=== PATIENT | male | born 1930 | race Caucasian/White ===

== ENCOUNTER 2017-05-29 13:45 | Emergency (ER) | payer MEDICARE ==
[~2017-05-29] VITALS: Ht 185.4 cm; Wt 83.5 kg
--- NOTE | 2017-05-29 13:45 | NUR ---
[facility] DT HEADCACHE, NECK PAIN AND ABDOMINAL PAIN ENDODONTIC ASSISTANT. PATIENT DENIES PAIN AT THIS TIME. REMAINS AWAKE AND ALERT HOWERVER CONFUSED. DENEIS N/V/D. NO HEMATURIA, NOR DYSURIA. VSS.
[2017-05-29 15:06] LABS: BASOPHILS % (AUTO) 0.5 % (0.0-2.0); EOSINOPHILS # (AUTO) 0.1 /CMM (0.0-0.7); HEMATOCRIT 39 % (39-51); HEMOGLOBIN 13.5 g/dL (13.5-17.5); LYMPHOCYTES % (AUTO) 14.8 % (20.0-44.0); MEAN CORPUSCULAR HEMOGLOBIN 32 PG (26.0-33.0); MEAN CORPUSCULAR HGB CONC 35 g/dl (31.0-36.0); MEAN CORPUSCULAR VOLUME 93 fL (80-96); MONOCYTES # (AUTO) 0.5 /CMM (0.1-1.30); MONOCYTES % (AUTO) 7.1 % (2.0-12.0); NEUTROPHILS # (AUTO) 5.3 /CMM (1.8-8.9); NEUTROPHILS % (AUTO) 76.6 % (43.0-81.0); PLATELET COUNT (AUTO) 114 /CMM (150-450); RED BLOOD CELL COUNT(AUTO) 4.23 MIL/uL (4.5-6.0); WHITE BLOOD COUNT (AUTO) 6.9 K/uL (4.3-11.0)
[2017-05-29 15:17] LABS: CALCIUM, SERUM 8.5 mg/dL (8.5-10.1); CARBON DIOXIDE 28 mmol/L (21-32); CHLORIDE 108 mmol/L (98-107); CREATININE 1.6 mg/dL (0.6-1.3); GLUCOSE 92 mg/dL (74-106); POTASSIUM 4.5 mmol/L (3.5-5.1); SODIUM SERUM 142 mmol/L (136-145); UREA NITROGEN, BLOOD 23 mg/dL (7-18)
[2017-05-29 15:21] LABS: INR 0.98 (0.87-1.13); PROTHROMBIN TIME 10.2 SECS (9.5-12.7)
[2017-05-29 15:26] LABS: TROPONIN I < 0.017 ng/mL (0.00-0.056)
[2017-05-29] MEDS ORDERED: IV NS 0.9% 500 ML BAG IV ONE (16:30)
[2017-05-29 16:39] VITALS: BP 120/82
--- NOTE | 2017-05-29 16:39 | NUR ---
IV removed. Catheter intact and site benign. Pressure and 4x4 applied to site. No bleeding noted.Patient discharged to home in stable condition. Written and verbal after care instructions given. Patient verbalizes understanding of instruction.
== END 2017-05-29 16:40 | disposition home or self-care (01) ==
LOC: ER 13:46
DX: F03.90 Unspecified dementia, unspecified severity, without behavioral disturbance, psychotic disturbance, mood disturbance, and anxiety (principal); D69.6 Thrombocytopenia, unspecified; N28.9 Disorder of kidney and ureter, unspecified; I10 Essential (primary) hypertension; E78.00 Pure hypercholesterolemia, unspecified; E78.5 Hyperlipidemia, unspecified
CPT/HCPCS: 36415; 70450; 71010; 80048; 84484; 85025; 85730; 93005; 99285; A4606; Z7610

== ENCOUNTER 2017-07-18 14:59 | Inpatient (IN) | payer MEDICARE, MEDICAID ==
[~2017-07-18] VITALS: Ht 172.7 cm; Wt 74.8 kg
--- NOTE | 2017-07-18 15:19 | NUR ---
[id number] FROM HOME: LEFT HIP PAIN, 03/01, ACHING.- SP EXTERNAL ROTATION S/P GLF YESTERDAY. PATIENT'S VSS.
[2017-07-18] MEDS ORDERED: MORPHINE SULFATE INJ 2 MG/ML DISP.SYRIN IV ONE (15:30)
[2017-07-18] MEDS ORDERED: IV NS 0.9% 500 ML BAG IV ONE (15:30)
--- NOTE | 2017-07-18 15:30 | NUR ---
Justa SIDHU G 18 IV STARTED. BLODO TESTS DRAWN AND SEND TO LAB.
[2017-07-18] MEDS ORDERED: MORPHINE SULFATE INJ 2 MG/ML DISP.SYRIN ONE (15:32)
[2017-07-18 15:42] LABS: BASOPHILS # (AUTO) 0.7 /CMM (0.0-0.2); BASOPHILS % (AUTO) 4.6 % (0.0-2.0); EOSINOPHILS # (AUTO) 0.1 /CMM (0.0-0.7); EOSINOPHILS % (AUTO) 0.4 % (0.0-6.0); HEMATOCRIT 34 % (39-51); HEMOGLOBIN 11.6 g/dL (13.5-17.5); LYMPHOCYTES # (AUTO) 2.1 /CMM (0.8-4.8); LYMPHOCYTES % (AUTO) 14.7 % (20.0-44.0); MEAN CORPUSCULAR HEMOGLOBIN 31 PG (26.0-33.0); MEAN CORPUSCULAR HGB CONC 35 g/dl (31.0-36.0); MEAN CORPUSCULAR VOLUME 90 fL (80-96); MONOCYTES # (AUTO) 1.8 /CMM (0.1-1.30); MONOCYTES % (AUTO) 12.5 % (2.0-12.0); NEUTROPHILS # (AUTO) 9.5 /CMM (1.8-8.9); NEUTROPHILS % (AUTO) 67.8 % (43.0-81.0); PLATELET COUNT (AUTO) 201 /CMM (150-450); RDW COEFFICIENT OF VARIATION 12.6 (11.5-15.0); RED BLOOD CELL COUNT(AUTO) 3.73 MIL/uL (4.5-6.0); WHITE BLOOD COUNT (AUTO) 14.2 K/uL (4.3-11.0)
[2017-07-18 15:51] LABS: CALCIUM, SERUM 9.1 mg/dL (8.5-10.1); CARBON DIOXIDE 24 mmol/L (21-32); CHLORIDE 104 mmol/L (98-107); CREATININE 2.4 mg/dL (0.6-1.3); GLUCOSE 114 mg/dL (74-106); POTASSIUM 4.4 mmol/L (3.5-5.1); SODIUM SERUM 140 mmol/L (136-145); UREA NITROGEN, BLOOD 44 mg/dL (7-18)
[2017-07-18 15:55] LABS: INR 1.01 (0.87-1.13); PROTHROMBIN TIME 10.5 SECS (9.5-12.7)
[2017-07-18 15:58] LABS: ALANINE AMINOTRANSFERASE 32 U/L (12-78); ALBUMIN 3.4 g/dL (3.4-5.0); ALKALINE PHOSPHATASE 89 U/L (46-116); ASPARTATE AMINOTRANSFERASE 62 U/L (15-37); BILIRUBIN,DIRECT 0.5 mg/dL (0.0-0.2); BILIRUBIN,TOTAL 1.5 mg/dL (0.2-1.0); TOTAL PROTEIN, SERUM 6.8 g/dL (6.4-8.2)
[2017-07-18 16:07] LABS: TROPONIN I < 0.017 ng/mL (0.00-0.056)
[2017-07-18] MEDS ORDERED: IV NS 0.9% 500 ML IV ONE (16:30)
--- NOTE | 2017-07-18 18:39 | NUR ---
REPORT GIVEN TO JIMMY WILL FOR NEYDA
[2017-07-18 19:01] VITALS: BP 127/89
--- NOTE | 2017-07-18 19:01 | NUR ---
MS RN ADMITTING NOTES: ADMITTED AN 86 YO MALE PATIENT WHO WAS SEEN IN THE ER AFTER HAVING AN UNWITNESSED FALL AT HOME, RESULTING IN LEFT HIP PAIN. IN ER, HE WAS FOUND TO HAVE LEFT INTERTROCHANTERIC FRACTURE. PATIENT WAS BROUGHT TO MS FLOOR VIA KELSI, AOX1, ON ROOM AIR, BREATHING EVEN AND UNLABORED, BREATH SOUNDS CLEAR TO AUSCULTATION. PATIENT APPEARS CALM AND PLEASANT, HOWEVER, STATES THAT HE HAS SHARP PAIN OVER LEFT HIP AND LEFT UPPER LEG WHEN TURNED OR MOVED IN BED. NOTED BLE WITH DISCOLORATION AND EXCORIATIONS. PROVIDED FOR COMFORT AND SAFETY. BED IN LOWEST AND LOCKED POSITION, SIDERAILS UP X 3, BED ALARMS PSYCHOLOGIST EXPERIMENTAL LIGHT WITHIN REACH. WILL CONT TO MONITOR.
[2017-07-18] MEDS ORDERED: CHOL50004 PO (19:08)
[2017-07-18] MEDS ORDERED: MEMA10TA PO (19:08)
[2017-07-18] MEDS ORDERED: MELO-107 PO (19:08)
[2017-07-18] MEDS ORDERED: SIMV20TA6 PO (19:08)
[2017-07-18] MEDS ORDERED: CELE200C PO (19:08)
[2017-07-18] MEDS ORDERED: OLME20TA21 PO (19:08)
[2017-07-18 20:00] VITALS: BP 125/85
[2017-07-18] MEDS ORDERED: ONDANSETRON HCL/PF 4 MG/2 ML VIAL IVP PRN (20:30)
[2017-07-18] MEDS ORDERED: ACETAMINOPHEN 325 MG TABLET PO PRN (20:30)
[2017-07-18] MEDS ORDERED: Z GUARD REMEDY 2 OZ OINT TP PRN (20:30)
[2017-07-18] MEDS ORDERED: ENOXAPARIN SODIUM 40 MG/0.4 ML DISP.SYRIN SQ SCH (21:00)
--- NOTE | 2017-07-18 22:00 | NUR ---
RN NOTES: SPOKE TO DAUGHTER CEDRICK , WHO IS ALSO THE CONSERVATOR, THAT SHE WILL BRING THE CONSERVATORSHIP PAPERS TOMORROW AND THAT PATIENT IS TO BE FULL CODE. ALSO INFORMED THAT PT HAS A RESTRAINING ORDER AGAINST ANOTHER DAUGHTER, LEÓN ZENDEJAS.
[2017-07-18] MEDS: IV NS 0.9% 1,000 ML IV PRN (22:47)
[2017-07-18] MEDS: SIMVASTATIN 20 MG TABLET PO SCH (22:47)
--- NOTE | 2017-07-18 23:32 | NUR ---
RN NOTES: SPOKE TO ERICA HALL: HOLD LOVENOX AT THIS TIME, PATIENT MIGHT HAVE SURGERY TOMORROW. NOTED AND CARRIED OUT.
--- NOTE | 2017-07-19 04:30 | NUR ---
RN NOTES: PATIENT PULLED OUT HIS IV. REINSERTED NEW IV LINE OVER RAC G 20, WITH GOOD BLOOD RETURN. WILL CONT TO MONITOR.
--- NOTE | 2017-07-19 05:30 | NUR ---
RN NOTES: OBTAINED ORDER FOR WILLIAMSON CATHETER PATIENT HAS PAIN WHILE TURNING. WILLIAMSON CATHETER FR 16 INSERTED, URINE SPECIMEN OBTAINED. WILL CONT TO MONITOR.
--- NOTE | 2017-07-19 06:53 | NUR ---
MS RN CLOSING NOTES: PATIENT IN BED, AOX1/ PLEASANTLY CONFUSED. ON ROOM AIR, BREATHING EVEN AND UNLABORED. APPEARS CALM AND IN NO DISTRESS. PIV OVER RAC G 20 INTACT AND PATENT, INFUSING WELL WITH NS RUNNING AT 75 ML/HR. DUE MEDS GIVEN. MAINTAINED ON NPO AFTER MN. PROVIDED FOR COMFORT AND SAFETY. BED IN LOWEST AND LOCKED POSITION, SIDERAILS UP X 3. WILL ENDORSE TO AM RN FOR NEYDA.
--- NOTE | 2017-07-19 07:30 | NUR ---
MS/RN OPENING NOTE PATIENT RECEIVED IN BED AWAKE. ALERT AND ORIENTED X1. REORIENTATION PROVIDED. DENIES SOB, DENIES PAIN. IN NO APPARENT DISTRESS. RAC G20 PATENT AND IV INFUSING WELL. PATIENT NPO UNTIL NEW ORDER. BED LOW AND LOCKED. SIDE RAIL X2 UP. CALL LIGHT WITHIN REACH. SITTER BY THE BED. WILL CONTINUE TO MONITOR.
[2017-07-19 07:37] LABS: APPEARANCE,URINE CLEAR (CLEAR); BILIRUBIN,URINE NEGATIVE (NEGATIVE); BLOOD, URINE 3+ Ery/uL (NEGATIVE); COLOR,URINE YELLOW (YELLOW); KETONES,URINE TRACE (NEGATIVE); LEUKOCYTE ESTERASE ,URINE NEGATIVE (NEGATIVE); NITRITE, URINE NEGATIVE (NEGATIVE); PH,URINE 5.5 (5.0-8.0); PROTEIN,URINE TRACE mg/dl (NEGATIVE); UGLUCOSE NEGATIVE (NEGATIVE)
[2017-07-19 07:53] LABS: BACTERIA,URINE Few /HPF (None Seen); SQUAMOUS EPITHELIAL CELL,UR Few /HPF (None Seen)
[2017-07-19 08:47] LABS: BASOPHILS % (AUTO) 0.2 % (0.0-2.0); EOSINOPHILS # (AUTO) 0.2 /CMM (0.0-0.7); EOSINOPHILS % (AUTO) 1.5 % (0.0-6.0); HEMATOCRIT 32 % (39-51); HEMOGLOBIN 10.8 g/dL (13.5-17.5); LYMPHOCYTES # (AUTO) 1.4 /CMM (0.8-4.8); LYMPHOCYTES % (AUTO) 11.6 % (20.0-44.0); MEAN CORPUSCULAR HEMOGLOBIN 32 PG (26.0-33.0); MEAN CORPUSCULAR HGB CONC 34 g/dl (31.0-36.0); MEAN CORPUSCULAR VOLUME 94 fL (80-96); MONOCYTES % (AUTO) 8.3 % (2.0-12.0); NEUTROPHILS # (AUTO) 9.5 /CMM (1.8-8.9); NEUTROPHILS % (AUTO) 78.4 % (43.0-81.0); PLATELET COUNT (AUTO) 148 /CMM (150-450); RDW COEFFICIENT OF VARIATION 13.7 (11.5-15.0); WHITE BLOOD COUNT (AUTO) 12.2 K/uL (4.3-11.0)
[2017-07-19 08:56] LABS: ALANINE AMINOTRANSFERASE 40 U/L (12-78); ALKALINE PHOSPHATASE 86 U/L (46-116); ASPARTATE AMINOTRANSFERASE 100 U/L (15-37); CALCIUM, SERUM 8.8 mg/dL (8.5-10.1); CARBON DIOXIDE 25 mmol/L (21-32); CHLORIDE 108 mmol/L (98-107); CREATININE 1.8 mg/dL (0.6-1.3); GLUCOSE 105 mg/dL (74-106); MAGNESIUM 2.1 mg/dL (1.8-2.4); PHOSPHORUS 3.3 mg/dL (2.5-4.9); POTASSIUM 4.2 mmol/L (3.5-5.1); SODIUM SERUM 142 mmol/L (136-145); TOTAL PROTEIN, SERUM 6.6 g/dL (6.4-8.2); UREA NITROGEN, BLOOD 39 mg/dL (7-18)
[2017-07-19] MEDS ORDERED: LOSARTAN POTASSIUM 25 MG TABLET PO SCH (09:00)
[2017-07-19] MEDS ORDERED: MELOXICAM 7.5 MG TABLET PO SCH (09:00)
[2017-07-19] MEDS: MEMANTINE HCL 5 MG TABLET PO SCH ×2 (09:00→17:00)
[2017-07-19] MEDS: CHOLECALCIFEROL 1,000 UNIT TABLET (VIT D3) PO SCH (09:00)
[2017-07-19 09:01] VITALS: BP 106/69
[2017-07-19 09:22] LABS: CHOLESTEROL 102 mg/dL (<200); HDL CHOLESTEROL 58 mg/dL (40-60); LDL 38 mg/dL (0-99); TRIGLYCERIDES 67 mg/dL (30-150)
--- NOTE | 2017-07-19 10:51 | NUR ---
MS/RN MD VISIT PATIENT SEEN BY DR SOFIA. PETE TO MD ATTENTION LEFT FOOT COLD TO TOUCH AND PALE. MD ASSESSED AND PER PEDAL PULSE PRESENT AND " NOTHING TO WORRY ABOUT." PER MD CONTINUE NPO DUE TO SURGERY.
[2017-07-19 13:06] LABS: CREATININE, URINE 196.4 MG/DL (30.0-125.0)
[2017-07-19 16:00] VITALS: BP 119/73
--- NOTE | 2017-07-19 17:11 | NUR ---
MS/RN NOTE PATIENT MEDICATION HELD DUE TO NPO FOR SURGERY.
[2017-07-19] MEDS ORDERED: FENTANYL PF 100MCG/2ML AMPUL ONE (17:50)
--- NOTE | 2017-07-19 17:50 | NUR ---
MS/RN LEFT FOR SURGERY PATIENT ALERT AND VERBALLY RESPONSIVE/ ALERT AND ORIENTED X1. RESPIRATION REGULAR AND UNLABORED. DENIES SOB. DENIES PAIN. IN NO APPARENT DISTRESS. IN STABLE CONDITION. TAKEN TO THE OR. RP ACCOMPANIED.
[2017-07-19] MEDS ORDERED: BUPIVACAINE 0.5 % PF 150 MG/30 ML VIAL ONE (18:27)
[2017-07-19] MEDS ORDERED: BACITRACIN 50000 UNITS/VIAL ONE (18:27)
--- NOTE | 2017-07-19 19:30 | NUR ---
MS RN NOTES: PT NOT IN ROOM. PT IN OR.
--- NOTE | 2017-07-19 20:18 | NUR ---
MS RN NOTES: PT BACK FROM OR. WILL CONTINUE TO MONITOR PT.
--- NOTE | 2017-07-19 20:20 | NUR ---
MS RN OPENING NOTES: RECEIVED PT FROM OR IN STABLE CONDITION. 2 FAMILY MEMBERS AT BEDSIDE. SITTER AT BEDSIDE. PT IS A/OX1 WITH PERIODS OF CONFUSION. PT HAS IV ON R AC #20G AND WILL BE STARTED ON NS AT 75ML/HR. GOT OR ORDERS AND TO PRESUME PREOP ORDERS. WILL START PT ON CLEAR LIQUIDS DIET AND ADVANCE TOLERATED. LOVENOX TO BE ADMINISTERED AFTER 24HOURS FOR HGB >9. DRESSING NOTED ON L HIP TO BE CLEAN AND DRY. PT BACK FROM L HIP IM RODDING D/T L HIP FRACTURE AND WAS PERFORMED BY DR. BALLARD. CALL LIGHT WITHIN PT'S REACH. BED KEPT IN LOW, LOCKED POSITION, AND SIDE RAILS X 2UP. WILL CONTINUE TO MONITOR PT.
[2017-07-19 20:21] VITALS: BP 100/59
[2017-07-19 20:30] VITALS: BP 100/59
[2017-07-19] MEDS: IV NS 0.9% 1,000 ML IV PRN (20:47)
--- NOTE | 2017-07-19 20:47 | NUR ---
MS RN NOTES: HAD TO MANUALLY ADMINISTER NX AT 75ML/HR. [facility] MISSING. ADMITTING NOTIFIED AND THEY SAID THEY ARE BUSY AT THIS TIME. WILL TRY ADMITTING AGAIN AT ANOTHER TIME. PT COMING BACK FROM OR SO WOULD LIKE TO START PT ON FLUIDS.
[2017-07-19] MEDS: SIMVASTATIN 20 MG TABLET PO SCH (21:54)
--- NOTE | 2017-07-19 21:54 | NUR ---
MS RN NOTES: HAD TO MANUALLY ADMINISTER SIMVASTATIN 20MG PO SINCE ARM BAND IS STILL NOT READY. MOVER HELPER CALLED ADMITTING ALREADY.
[2017-07-19 22:00] VITALS: BP 111/62
[2017-07-20] MEDS: ANCEF 1 GM/50 ML D5W IV SCH ×6 (01:01→17:27)
[2017-07-20 04:42] VITALS: BP 111/71
[2017-07-20] MEDS: MORPHINE SULFATE INJ 2 MG/ML DISP.SYRIN IV PRN (04:45)
--- NOTE | 2017-07-20 04:47 | NUR ---
MS RN NOTES: PT SEEMS RESTLESS AND WILL NOT GO TO SLEEP. PT KEEPS PULLING IV LINES AND IT MAY FALL ON HIM. INFORMED PT THAT HE NEEDS TO STAY HYDRATED. PT COMPLAINING THAT HE HAS L ARM AND HIP PAIN. PT WAS ADMINISTERED MORPHINE VIA IV. WILL CONTINUE TO MONITOR PT.
[2017-07-20 06:05] VITALS: BP 111/71
--- NOTE | 2017-07-20 07:30 | NUR ---
MS RN CLOSING NOTES: ALL NEEDS WERE ATTENDED AND ANTICIPATED FOR. PT IS ASLEEP AT THIS TIME. PT HAS BEEN A/OX1 WITH CONFUSION THROUGHOUT MY SHIFT. PT HAS WILLIAMSON CATH AND IS ATTACHED TO DRAINAGE BAG WITH YELLOW URINE DRAINING. OUTPUT WAS 550ML. PT HAS IV ON R AC #20G AND IS BEING INFUSED WITH NS AT 75ML/HR. SITTER AT BEDSIDE. CALLED [facility] AND SAID THEY WERE LOW BUT WILL BRING SOME UP SOON THEY ARE AVAILABLE. PT ON CLEAR LIQUIDS DIET AND TOLERATED WELL LAST NIGHT. DRESSING ON L HIP INTACT AND CLEAN. CALL LIGHT WITHIN PT'S REACH. BED KEPT IN LOW, LOCKED POSITION, AND SIDE RAILS X 2UP. ENDORSED TO AM NURSE FOR NEYDA.
[2017-07-20 08:00] VITALS: BP_SYST 106; BP_SYST 141; BP_DIAS 70; BP_DIAS 72
[2017-07-20 08:00] LABS: BASOPHILS % (AUTO) 0.1 % (0.0-2.0); EOSINOPHILS # (AUTO) 0.1 /CMM (0.0-0.7); EOSINOPHILS % (AUTO) 1.2 % (0.0-6.0); HEMATOCRIT 25 % (39-51); HEMOGLOBIN 8.8 g/dL (13.5-17.5); LYMPHOCYTES % (AUTO) 9.7 % (20.0-44.0); MEAN CORPUSCULAR HEMOGLOBIN 32 PG (26.0-33.0); MEAN CORPUSCULAR HGB CONC 35 g/dl (31.0-36.0); MEAN CORPUSCULAR VOLUME 91 fL (80-96); MONOCYTES # (AUTO) 0.5 /CMM (0.1-1.30); MONOCYTES % (AUTO) 5.2 % (2.0-12.0); NEUTROPHILS # (AUTO) 8.6 /CMM (1.8-8.9); NEUTROPHILS % (AUTO) 83.8 % (43.0-81.0); PLATELET COUNT (AUTO) 125 /CMM (150-450); RDW COEFFICIENT OF VARIATION 13.1 (11.5-15.0); RED BLOOD CELL COUNT(AUTO) 2.75 MIL/uL (4.5-6.0); WHITE BLOOD COUNT (AUTO) 10.2 K/uL (4.3-11.0)
--- NOTE | 2017-07-20 08:17 | NUR ---
m/s ear nose throat physician: cardio f/u seen and examined by dr. gamboa with new orders. orders acknowledged.
[2017-07-20 08:21] LABS: APPEARANCE,URINE SL CLOUDY (CLEAR); BILIRUBIN,URINE NEGATIVE (NEGATIVE); BLOOD, URINE 2+ Ery/uL (NEGATIVE); COLOR,URINE DARK YELLO (YELLOW); KETONES,URINE 1+ (NEGATIVE); LEUKOCYTE ESTERASE ,URINE NEGATIVE (NEGATIVE); NITRITE, URINE NEGATIVE (NEGATIVE); PROTEIN,URINE NEGATIVE (NEGATIVE); UGLUCOSE NEGATIVE (NEGATIVE); UROBILINOGEN,URINE 0.2 EU/dL (0.2)
[2017-07-20 08:30] LABS: ALANINE AMINOTRANSFERASE 39 U/L (12-78); ALBUMIN 2.4 g/dL (3.4-5.0); ALKALINE PHOSPHATASE 71 U/L (46-116); ASPARTATE AMINOTRANSFERASE 77 U/L (15-37); BILIRUBIN,TOTAL 0.8 mg/dL (0.2-1.0); CALCIUM, SERUM 8.6 mg/dL (8.5-10.1); CARBON DIOXIDE 28 mmol/L (21-32); CHLORIDE 114 mmol/L (98-107); CREATININE 1.6 mg/dL (0.6-1.3); GLUCOSE 181 mg/dL (74-106); PHOSPHORUS 3.3 mg/dL (2.5-4.9); SODIUM SERUM 148 mmol/L (136-145); TOTAL PROTEIN, SERUM 5.7 g/dL (6.4-8.2); UREA NITROGEN, BLOOD 35 mg/dL (7-18)
[2017-07-20 08:46] LABS: CREATINE KINASE, TOTAL 670 U/L (39-308)
[2017-07-20 08:56] LABS: CREATININE, URINE 128.2 MG/DL (30.0-125.0); URINE TOTAL PROTEIN 57.9 mg/dL (0-11.9)
[2017-07-20] MEDS: MEMANTINE HCL 5 MG TABLET PO SCH ×2 (09:00→17:00)
[2017-07-20] MEDS: CHOLECALCIFEROL 1,000 UNIT TABLET (VIT D3) PO SCH (09:00)
[2017-07-20 09:38] LABS: CREATINE KINASE MB 7.6 ng/mL (0-3.6)
--- NOTE | 2017-07-20 09:49 | NUR ---
WOUND CARE CONSULT: PT PRESENTS WITH AGITATION AT TIMES. STAGE 1 (NONBLANCHABLE REDNESS) NOTED TO LEFT LATERAL ANKLE, PRESENT ON ADMISSION. CURRENT VOLODYMYR SCORE IS 11. PT ON CHANTEL ISOFLEX LOW AIRLOSS BED. ALL SKIN PROTECTION MEASURES IN PLACE AND DISCUSSED WITH NURSING STAFF. LEFT HIP SURGICAL DSGS ARE DRY AND INTACT. WILL SEE PRN. IBARRA IN AGREEMENT WITH PLAN OF CARE. Addendum: 07/20/17 at 8954 by MATT REDDY WNDNU Amended: Links added.
--- NOTE | 2017-07-20 12:00 | NUR ---
m/s associate account executive: notes resting comfortable in bed with sitter at bedside. will continue to monitor.
--- NOTE | 2017-07-20 13:45 | NUR ---
m/s automatic profile shaper operator: md visit seen and examined by dr. quiroga at this time. private caregiver at bedside.
[2017-07-20 14:27] LABS: BACTERIA,URINE None seen /HPF (None Seen); SQUAMOUS EPITHELIAL CELL,UR None Seen /HPF (None Seen); URIC ACID CRYSTALS,URINE Moderate /HPF (None Seen); WBC,URINE NONE SEEN /HPF (0-3)
[2017-07-20] MEDS: SOD FERRIC GLUC 125 MG in IV NS 0.9% 100 ML IV SCH (15:31)
[2017-07-20 16:00] VITALS: BP 108/58
[2017-07-20 17:03] LABS: EOSINOPHIL,URINE None Seen
--- NOTE | 2017-07-20 18:45 | NUR ---
m/s registered public health nurse: notes daughter here and aware pt is for d'c planning to snf, but request if he can stay until sunday. attempted to call case management, but no answer, daughter made aware. will endorsed accordingly.
--- NOTE | 2017-07-20 19:00 | NUR ---
RN NOTES A/O X 1, IN BED RESTING COMFORTABLY PT IN STABLE CONDITION, NO S/S OF DISTRESS. SAFETY MEASURES ARE IN PLACE, CALL LIGHT IS IN REACH. WILL CONTINUE TO MONITOR.
[2017-07-20 20:00] VITALS: BP 101/57
[2017-07-20] MEDS: ENOXAPARIN SODIUM 40 MG/0.4 ML DISP.SYRIN SQ SCH (21:15)
[2017-07-20] MEDS: IV NS 0.9% 1,000 ML IV PRN (21:16)
--- NOTE | 2017-07-21 06:30 | NUR ---
MS RN CLOSING NOTES COMFORTABLY ASLEEP IN BED AND EASILY AWAKEN, TOLERATING ROOM AIR 98% RESPIRATIONS EVEN AND UNLABORED. NOT IN S/S DISTRESS. STABLE CONDITION. KEPT CLEAN AND DRY AND COMFORTABLE, GOOD SKIN CARE PROVIDED. ALL NURSING CARE RENDERED. NEEDS ATTENDED AND ANTICIPATED, FREQUENT VISUAL CHECK DONE FOR SAFETY EVERY 2 HOURS. ASSISTED REPOSITION Q2H. ON LOW BED AT ALL TIMES TO ENSURE SAFETY. SAFE HAZARD FREE ENVIRONMENT PROVIDED. CALL LIGHT WITHIN EASY TO REACH. WILL ENDORSE NEXT SHIFT CONTINUITY OF CARE.
--- NOTE | 2017-07-21 07:10 | NUR ---
MS RN OPENING NOTE RECEIVED SBAR REPORT ON THE PATIENT. PATIENT IS A/O X1, CONFUSED, FORGETFUL. ASLEEP, EASILY AWAKEN INBED. BED IS LOCKED IN LOWEST POSITION. SIDE RAILS UP X3, BED ALARM IS ON. PATIENT HAS A WILLIAMSON CATHETER DRAINING CLEAR YELLOW URINE. DENIES PAIN/DISCOMFORT AT THIS TIME. NO S/S OF DISTRESS. CHEST IS RISING EQUALLY BILATERALLY. SPO2 97% ON RA. ALL NEEDS ARE MET AT THIS TIME. WILL CONTINUE TO ASSESS/MONITOR THROUGHOUT THE SHIFT.
[2017-07-21 08:00] VITALS: BP 110/64
[2017-07-21 08:17] LABS: BASOPHILS # (AUTO) 0.1 /CMM (0.0-0.2); BASOPHILS % (AUTO) 0.5 % (0.0-2.0); EOSINOPHILS # (AUTO) 0.7 /CMM (0.0-0.7); EOSINOPHILS % (AUTO) 6.8 % (0.0-6.0); HEMATOCRIT 25 % (39-51); HEMOGLOBIN 8.3 g/dL (13.5-17.5); LYMPHOCYTES # (AUTO) 1.9 /CMM (0.8-4.8); LYMPHOCYTES % (AUTO) 18.2 % (20.0-44.0); MEAN CORPUSCULAR HEMOGLOBIN 31 PG (26.0-33.0); MEAN CORPUSCULAR HGB CONC 33 g/dl (31.0-36.0); MEAN CORPUSCULAR VOLUME 93 fL (80-96); NEUTROPHILS # (AUTO) 6.9 /CMM (1.8-8.9); NEUTROPHILS % (AUTO) 65.5 % (43.0-81.0); PLATELET COUNT (AUTO) 133 /CMM (150-450); RED BLOOD CELL COUNT(AUTO) 2.68 MIL/uL (4.5-6.0); WHITE BLOOD COUNT (AUTO) 10.6 K/uL (4.3-11.0)
[2017-07-21 08:51] LABS: ALANINE AMINOTRANSFERASE 30 U/L (12-78); ALBUMIN 2.2 g/dL (3.4-5.0); ALKALINE PHOSPHATASE 70 U/L (46-116); ASPARTATE AMINOTRANSFERASE 62 U/L (15-37); BILIRUBIN,TOTAL 0.6 mg/dL (0.2-1.0); CALCIUM, SERUM 8.3 mg/dL (8.5-10.1); CARBON DIOXIDE 28 mmol/L (21-32); CHLORIDE 111 mmol/L (98-107); CREATININE 1.3 mg/dL (0.6-1.3); GLUCOSE 115 mg/dL (74-106); MAGNESIUM 1.8 mg/dL (1.8-2.4); PHOSPHORUS 2.6 mg/dL (2.5-4.9); POTASSIUM 4.5 mmol/L (3.5-5.1); SODIUM SERUM 143 mmol/L (136-145); TOTAL PROTEIN, SERUM 5.4 g/dL (6.4-8.2); UREA NITROGEN, BLOOD 26 mg/dL (7-18)
[2017-07-21] MEDS: CHOLECALCIFEROL 1,000 UNIT TABLET (VIT D3) PO SCH (09:02)
[2017-07-21] MEDS: MEMANTINE HCL 5 MG TABLET PO SCH ×2 (09:02→17:48)
--- NOTE | 2017-07-21 09:20 | NUR ---
PT AT THE BEDSIDE
--- NOTE | 2017-07-21 11:40 | NUR ---
PATIENT'S DAUGHTER AT THE BEDSIDE. DISCUSSED THE TREATMENT PLAN WITH THE DAUGHTER.
[2017-07-21] MEDS: SOD FERRIC GLUC 125 MG in IV NS 0.9% 100 ML IV SCH (13:36)
[2017-07-21 16:00] VITALS: BP 122/61
--- NOTE | 2017-07-21 19:00 | NUR ---
MS RN NOTES A/O X 1, IN BED RESTING COMFORTABLY IN STABLE CONDITION, NO S/S OF DISTRESS. SAFETY MEASURES ARE IN PLACE, CALL LIGHT IS IN REACH. WILL CONTINUE TO MONITOR.
--- NOTE | 2017-07-21 19:08 | NUR ---
MS RN CLOSING NOTE PATIENT IS A/O X1, CONFUSED, FORGETFUL. AWAKE AND RESPONSIVE. BED IS LOCKED IN LOWEST POSITION. SIDE RAILS UP X3, BED ALARM IS ON. PATIENT HAS A WILLIAMSON CATHETER DRAINING CLEAR [place] URINE. DENIES PAIN/DISCOMFORT AT THIS TIME. NO S/S OF DISTRESS. CHEST IS RISING EQUALLY BILATERALLY. SPO2 97% ON RA. ALL NEEDS ARE MET AT THIS TIME. CALL LIGHT WITHIN REACH. ALL DUE MEDICATIONS ADMINISTERED. WILL ENDORSE TO THE HISTORIAN RESEARCH ASSISTANT NURSE FOR NEYDA.
[2017-07-21 20:00] VITALS: BP 118/73
[2017-07-21] MEDS ORDERED: MAGNESIUM HYDROXIDE 30 ML UDC ONE (20:14)
[2017-07-21] MEDS ORDERED: MAGNESIUM HYDROXIDE 30 ML UDC PO ONE (20:15)
--- NOTE | 2017-07-21 20:15 | NUR ---
MS RN NOTES PT COMPLAINS OF ABDOMINAL PAIN AND CONSTIPATION PAGED MAUREEN HALL N.P SPOKE TO HER AND ORDERED TO GIVE MILK OF MAGNESIA UD X1 ONLY NOTED AND CARRIED OUT READ BACK AND VERIFIED ORDER.
[2017-07-21] MEDS: IV NS 0.9% 1,000 ML IV PRN (20:32)
[2017-07-21] MEDS: ENOXAPARIN SODIUM 40 MG/0.4 ML DISP.SYRIN SQ SCH (20:36)
--- NOTE | 2017-07-22 06:15 | NUR ---
MS RN CLOSING NOTES ASLEEP AND EASILY AWAKEN, TOLERATING ROOM AIR 98%. IV SITE INTACT WITH NO S/S OF INFILTRATION. NO COMPLAINS OF ABDOMINAL PAIN. NO NAUSEA NO VOMITING, STABLE CONDITION. NOT IN S/S OF DISTRESS. RESPIRATIONS EVEN AND UNLABORED. ALL NURSING CARE RENDERED. NEEDS ATTENDED AND ANTICIPATED, KEPT CLEAN AND DRY AND COMFORTABLE, GOOD SKIN CARE PROVIDED. ASSISTED REPOSITION Q2H. ON LOW BED AT ALL TIMES TO ENSURE SAFETY. SAFE HAZARD FREE ENVIRONMENT PROVIDED. CALL LIGHT WITHIN EASY TO REACH. WILL ENDORSE NEXT SHIFT CONTINUITY OF CARE. F/C INTACT DRAINING YELLOW VIA GRAVITY WITH NO SEDIMENTS NO HEMATURIA NO CLOUDINESS NOTED.
--- NOTE | 2017-07-22 07:25 | NUR ---
MS RN OPENING NOTES. PT A&0X1, CONVERSATIONAL BUT FORGETFUL. PT RESTING IN BED AND EASILY AWOKEN. PT TOLERATING ROOM AIR WITH NO SOB. PT REPORTING NO PAIN. PT WITH IVC AT L HAND INTACT AND OPERATIONAL. PT BRIEFED ON TODAY'S POC, WILL REORIENTATE NEEDED, PT WITHOUT CONCERN OR COMPLAINT AT THIS TIME. BED IN LOWEST LOCKED POSITION WITH HANDRAILSX3 AND CALL LANDIN WITHIN REACH.
[2017-07-22 08:00] VITALS: BP 127/64
[2017-07-22] MEDS: MEMANTINE HCL 5 MG TABLET PO SCH ×2 (09:44→18:44)
[2017-07-22] MEDS: CHOLECALCIFEROL 1,000 UNIT TABLET (VIT D3) PO SCH (09:44)
--- NOTE | 2017-07-22 10:41 | NUR ---
MS RN NOTES. PT REMOVED IVC. WILL ATTEMPT TO REINSERT.
[2017-07-22] MEDS: IV NS 0.9% 1,000 ML IV PRN (12:18)
[2017-07-22] MEDS: SOD FERRIC GLUC 125 MG in IV NS 0.9% 100 ML IV SCH (15:02)
[2017-07-22] MEDS ORDERED: OXYC-128 PO (15:57)
[2017-07-22] MEDS ORDERED: ENOX40DI SQ (15:57)
[2017-07-22 16:00] VITALS: BP 126/73
--- NOTE | 2017-07-22 19:29 | NUR ---
MS RN CLOSING NOTES. PT FOR D/C TO SNF AT 1030AM . PT A&0X1, CONVERSATIONAL BUT VERY FORGETFUL AND OFTEN CONFUSED. TOLERATING ROOM AIR WITH NO SOB OR S/S OF RESP DISTRESS. PT REPORTING NO PAIN AND IS WITHOUT S/S OF DISTRESS OR DISCOMFORT. PT WITH IVC AT R FA G#20 INTACT AND OPERATIONAL. BED IN LOWEST LOCKED POSITION WITH HANDRAILSX4 AND CALL LANDIN WITHIN REACH. ALL DAY NURSE DUTIES ATTENDED TO, PATIENT IS WITHOUT CONCERN OR COMPLAINT AT THIS TIME, WILL ENDORSE TO NIGHT NURSE.
--- NOTE | 2017-07-22 19:30 | NUR ---
MS NUCLEAR MEDICINE SUPERVISOR INITIAL NOTES RECEIVED REPORT FROM AM NURSE CARLOS WHILE CHECKING PT. HE'S IN BED LYING AWAKE AND STILL CONFUSION NOTED. BREATHING EVEN AND NON-LABORED, NOT IN ANY ACUTE DISTRESS NOTED. BUT NOTICED FACIAL GRIMACE AND NOTICED HE'S COMPLAINING OF PAIN ESPECIALLY WHEN MOVING AND TURNING. IVF STILL INFUSING ON HIS RIGHT FOREARM PATENT AND INTACT. RE-ORIENTED WHERE HE AT AND HOW TO USED THE CALL LIGHT SYSTEM. NO MORE DRESSING NOTED ON HIS LEFT HIP. STAPLE DRY AND INTACT. KEPT HIM WARM AND COMFORTABLE AT ALL TIMES. BED ALARM SET FOR PT SAFETY. WILL CONTINUE MONITORING.
[2017-07-22 20:00] VITALS: BP 131/78
[2017-07-22 20:30] VITALS: BP 135/76
[2017-07-22] MEDS: ENOXAPARIN SODIUM 40 MG/0.4 ML DISP.SYRIN SQ SCH (21:12)
--- NOTE | 2017-07-22 22:00 | NUR ---
PROFESSOR OF MUSICOLOGY/CLOSING NOTES ENDORSE TO ANOTHER NURSE CHUCKY FOR CONTINUITY OF CARE.
[2017-07-22] MEDS: MORPHINE SULFATE INJ 2 MG/ML DISP.SYRIN IV PRN (22:33)
--- NOTE | 2017-07-23 06:37 | NUR ---
MS RN OPENING NOTES RECEIVED PT IN BED ON ROOM AIR CONFUSED,NO APPARENT DISTRESS NOTED.NO S/SX OF PAIN OR DISCOMFORT NOTED F/C IN PLACE DRAINING YE;;OW COLOR URINE.WILL MONITOR
--- NOTE | 2017-07-23 06:39 | NUR ---
MS RN CLOSING NOTES PT IN BED AWAKE,CONFUSED,ON ROOM AIR,NO APPARENT DISTRESS NOTED.NO S/SX OF PAIN OR DISCOMFORT NOTED . F/C IN PLACE DRAINING YELLOW COLOR URINE.KEPT CLEAN AND COMFORTABLE.ATTENDED ALL NEEDS.WILL CONTINUE TO MONITOR.
--- NOTE | 2017-07-23 07:45 | NUR ---
MS RN OPENING NOTES. PT A&0X1, CONGRUENT AND CONVERSATIONAL BUT FORGETFUL. PT AWAKE IN BED TRYING TO REMOVE GOWN. PT TOLERATING ROOM AIR WITH NO SOB. PT REPORTING NO PAIN. PT WITH IVC AT R WRIST INTACT AND OPERATIONAL. PT BRIEFED ON TODAY'S POC AND D/C, WILL REORIENTATE NEEDED, PT WITHOUT CONCERN OR COMPLAINT AT THIS TIME.
[2017-07-23] MEDS: MEMANTINE HCL 5 MG TABLET PO SCH (08:20)
[2017-07-23] MEDS: CHOLECALCIFEROL 1,000 UNIT TABLET (VIT D3) PO SCH (08:20)
--- NOTE | 2017-07-23 12:14 | NUR ---
MS RN CLOSING NOTES. D/C RE[facility]. PT A&0X1, CONGRUENT AND CONVERSATIONAL BUT FORGETFUL. PT PREPARED FOR D/C PER MD. PT TOLERATING ROOM AIR WITH NO SOB. PT REPORTING NO PAIN. PT IVC REMOVED AND NAD AT SITE. PT WITH WILLIAMSON CATH INTACT AND OPERATIONAL PER MD, SNF AWARE FC IS INSITU. PT WITH ALL BELONGINGS AND DOCUMENT SIGNED BY RNX2, SO D/C PACKET SIGNED BY RNX2 PROVIDED TO [facility], 1 FOR SNF FOR NEYDA AND 1 FOR FAMILY/CAREGIVER WHO IS WAITING AT SNF. WOUND CARE ATTENDED TO AND NEW DRESSING APPLIED, ALL PHOTOS IN CHART. ALL DAY NURSE DUTIES ATTENDED TO PRIOR TO D/C, PT IS WITHOUT CONCERN OR COMPLAINT AT THIS TIME. EXIT WITH [facility].
[2017-07-24 08:07] LABS: *SPE A/G RATIO 1.1 (0.7-1.7); *SPE ALBUMIN 2.7 g/dL (2.9-4.4); *SPE ALPHA-1-GLOBULIN 0.3 g/dL (0.0-0.4); *SPE ALPHA-2-GLOBULIN 0.7 g/dL (0.4-1.0); *SPE BETA GLOBULIN 0.6 g/dL (0.7-1.3); *SPE GLOBULIN, TOTAL 2.4 g/dL (2.2-3.9); *SPE M-SPIKE Not Observed g/dL (Not Observed); *SPEGAMMA GLOBULIN 0.8 g/dL (0.4-1.8)
[2017-07-25 10:13] LABS: CALCITRIOL VIT D,1, 25 DIHYDRO 57.2 pg/mL (19.9-79.3)
[2017-07-26 10:19] LABS: PTH, INTACT 34 pg/mL (15-65)
== END 2017-07-23 12:04 | DRG 480 ==
LOC: ER 14:59 → MED 19:27
PROVIDERS: ADMIT Nurse Practitioner Acute Care; ATTEND Nurse Practitioner Acute Care
PROC: 0QS706Z Reposition Left Upper Femur with Intramedullary Internal Fixation Device, Open Approach (ICD-10-PCS; principal; 2017-07-19 20:05)
DX: S72.142A Displaced intertrochanteric fracture of left femur, initial encounter for closed fracture (principal); N17.0 Acute kidney failure with tubular necrosis; D64.9 Anemia, unspecified; E86.9 Volume depletion, unspecified; D72.829 Elevated white blood cell count, unspecified; E78.5 Hyperlipidemia, unspecified; F03.90 Unspecified dementia, unspecified severity, without behavioral disturbance, psychotic disturbance, mood disturbance, and anxiety; E80.6 Other disorders of bilirubin metabolism; W06.XXXA Fall from bed, initial encounter; Y93.9 Activity, unspecified; Y92.009 Unspecified place in unspecified non-institutional (private) residence as the place of occurrence of the external cause; Z79.1 Long term (current) use of non-steroidal anti-inflammatories (NSAID); Z96.652 Presence of left artificial knee joint
CPT/HCPCS: 36415; 71010-TC; 72170-TC; 73020; 80048-TC; 80053-TC; 80061-TC; 80076-TC; 81000-TC; 82306; 82550-TC; 82553-TC; 82570-TC; 82652; 82728-TC; 83540-TC; 83735-TC; 83970; 84100-TC; 84155; 84155-TC; 84165; 84300-TC; 84439-TC; 84443-TC; 84484-TC; 85025-TC; 85027-TC; 85730-TC; 86850-TC; 86921-TC; 87081-TC; 87086-TC; 93307-TC; 97110-TC; 97530-TC; A4606; A6209; A6402; C1713; J0690; J1650; J2270; J2405; J2704; J2916; J3010; J3490; J7030; J7040; J7060; Z7610

== ENCOUNTER 2017-07-25 20:27 | Inpatient (IN) | payer MEDICARE, MEDICAID ==
[~2017-07-25] VITALS: Ht 177.8 cm; Wt 73.9 kg
[~2017-07-25 20:27] MED LIST: CHOL50004 PO; ENOX40DI SQ; MELO-107 PO; MEMA10TA PO; OLME20TA21 PO; OXYC-128 PO; SIMV20TA6 PO
[2017-07-25 23:35] LABS: BASOPHILS % (AUTO) 0.4 % (0.0-2.0); EOSINOPHILS % (AUTO) 0.1 % (0.0-6.0); LYMPHOCYTES # (AUTO) 1.1 /CMM (0.8-4.8); LYMPHOCYTES % (AUTO) 12.5 % (20.0-44.0); MEAN CORPUSCULAR HEMOGLOBIN 32 PG (26.0-33.0); MEAN CORPUSCULAR HGB CONC 34 g/dl (31.0-36.0); MEAN CORPUSCULAR VOLUME 93 fL (80-96); MONOCYTES # (AUTO) 0.7 /CMM (0.1-1.30); MONOCYTES % (AUTO) 7.8 % (2.0-12.0); NEUTROPHILS # (AUTO) 7.1 /CMM (1.8-8.9); NEUTROPHILS % (AUTO) 79.2 % (43.0-81.0); PLATELET COUNT (AUTO) 179 /CMM (150-450); RDW COEFFICIENT OF VARIATION 13.9 (11.5-15.0); WHITE BLOOD COUNT (AUTO) 8.9 K/uL (4.3-11.0)
[2017-07-25 23:40] LABS: CALCIUM, SERUM 7.8 mg/dL (8.5-10.1); CARBON DIOXIDE 25 mmol/L (21-32); CHLORIDE 107 mmol/L (98-107); CREATININE 1.6 mg/dL (0.6-1.3); GLUCOSE 126 mg/dL (74-106); POTASSIUM 4.1 mmol/L (3.5-5.1); SODIUM SERUM 141 mmol/L (136-145); UREA NITROGEN, BLOOD 59 mg/dL (7-18)
[2017-07-25 23:42] LABS: HEMATOCRIT 18 % (39-51)
[2017-07-25 23:46] LABS: ALANINE AMINOTRANSFERASE 66 U/L (12-78); ALBUMIN 1.9 g/dL (3.4-5.0); ALKALINE PHOSPHATASE 68 U/L (46-116); ASPARTATE AMINOTRANSFERASE 120 U/L (15-37); BILIRUBIN,DIRECT 0.2 mg/dL (0.0-0.2); BILIRUBIN,TOTAL 0.5 mg/dL (0.2-1.0); TOTAL PROTEIN, SERUM 4.9 g/dL (6.4-8.2)
[2017-07-25 23:49] LABS: INR 1.11 (0.87-1.13); PROTHROMBIN TIME 11.6 SECS (9.5-12.7)
[2017-07-26 00:09] LABS: BAND % (MANUAL) 1 % (0.0-5.0); LYMPHOCYTES % (MANUAL) 11 % (16-48); MONOCYTES % (MANUAL) 9 % (0-11.0); NEUTROPHILS % (MANUAL) 79 (42-76)
--- NOTE | 2017-07-26 00:20 | NUR ---
RECEIVED PT FROM ER BED 12, NOW PLACED IN ER BED 7. PT YULY FROM [facility] FOR ABNORMAL LABS. PT AOX1. RR EVEN AND UNLABORED. NO SOB NOTED. NO NVD AT THIS TIME. PT GOWNED AND PLACED ON MONITOR.
--- NOTE | 2017-07-26 00:56 | NUR ---
1ST UNIT PRBC TRANFUSING. VSS.
--- NOTE | 2017-07-26 01:10 | NUR ---
OCCULT STOOL COLLECTED. INFORMED DR. MARCUM
--- NOTE | 2017-07-26 01:37 | NUR ---
PT ASSIGNED TO [place] [id number]
--- NOTE | 2017-07-26 01:45 | NUR ---
REPORT GIVEN TO NICOLETTE MARIE. BLOOD TRANSFUSING ON ADMISSION. PT CURRENTLY TOLERATING TRANFUSING.
--- NOTE | 2017-07-26 01:50 | NUR ---
FIRE MARSHAL REFINERY NOTES RECEIVED PATIENT FROM ER VIA KELSI. PATIENT IS ALERT AND ORIENTED X1 TO SELF, CONFUSED, UNABLE TO DESCRIBE EVENTS WHICH BROUGHT HIM TO [facility]. BREATHING IS EVEN AND NONLABORED WHILE ON O2 VIA NC @ 2LPM, TOLERATING WELL, FREE FROM ANY S/S OF RESPIRATORY DISTRESS. ONGOING BLOOD TRANSFUSION, STARTED IN ER. PER ER NURSE, 1 MORE UNIT OF PRBC TO BE INFUSED, 2 UNITS TOTAL. SKIN ASSESSMENT COMPLETED, SKIN ISSUES PHOTOGRAPHED AND DOCUMENTED PER PROTOCOL. ATTEMPTED TO EXPLAIN THE PLAN OF CARE TO THE PATIENT, BUT HE IS CONFUSED, UNABLE TO VERBALIZE UNDERSTANDING. CALL LIGHT LEFT WITHIN EASY REACH, BED IN LOWEST AND LOCKED POSITION, WILL CONTINUE TO CLOSELY MONITOR
--- NOTE | 2017-07-26 01:56 | NUR ---
PT TRANSFERRED PER ACLS PROTOCOL. ENDORSED TO NICOLETTE MARIE TO GIVE 2ND UNIT PRBC PER MD ORDER
--- NOTE | 2017-07-26 02:20 | NUR ---
RN NOTES PRBC INFUSION #1 COMPLETE, PATIENT TOLERATED PROCEDURE WELL. NO S/S OF ADVERSE TRANSFUSION REACTION. WILL CONTINUE TO CLOSELY MONITOR, AND INITIATE PRBC TRANSFUSION #2/2
[2017-07-26] MEDS ORDERED: Z GUARD REMEDY 2 OZ OINT TP PRN (02:30)
[2017-07-26] MEDS ORDERED: ONDANSETRON HCL/PF 4 MG/2 ML VIAL IVP PRN (02:30)
[2017-07-26] MEDS ORDERED: ZOLPIDEM TARTRATE 5 MG TABLET PO PRN (02:30)
[2017-07-26] MEDS ORDERED: MAG HYDROX/AL HYDROX/SIMETH 30 ML UDC PO PRN (02:30)
[2017-07-26] MEDS ORDERED: ACETAMINOPHEN 325 MG TABLET PO PRN (02:30)
[2017-07-26] MEDS ORDERED: MAGNESIUM HYDROXIDE 30 ML UDC PO PRN (02:30)
[2017-07-26 02:47] VITALS: BP 89/53
[2017-07-26 03:02] VITALS: BP 99/43
[2017-07-26] MEDS: PANTOPRAZOLE 40 MG VIAL IV SCH ×3 (03:54→21:51)
[2017-07-26] MEDS ORDERED: PANTOPRAZOLE 40 MG VIAL ONE (03:54)
[2017-07-26 04:00] VITALS: BP 91/35
--- NOTE | 2017-07-26 07:00 | NUR ---
RN CLOSING NOTES PATIENT RESTING COMFORTABLY IN BED. LAB CALLED FOR TIMED DRAW, S/P 2 UNITS PRBCs, NO ADVERSE TRANSFUSION REACTION NOTED. WILL ENDORSE THE PATIENT TO THE AM SHIFT NURSE FOR NEYDA
--- NOTE | 2017-07-26 07:37 | NUR ---
MS RN: INITIAL NOTE RECEIVED PT A/OX1. ON2L NC SATING AT 96%. NO DISTRESS NOTED. NO SOB NOTED. NO PAIN NOTED. INCONTINENT. USES DIAPER. ON REGULAR DIET. R AC #18G SL. NO IV FLUIDS RUNNING. BEDREST. RESTING COMFORTABLY IN BED. CALL LIGHT WITHIN REACH.
[2017-07-26 07:49] LABS: BASOPHILS % (AUTO) 0.1 % (0.0-2.0); EOSINOPHILS % (AUTO) 0.2 % (0.0-6.0); HEMATOCRIT 23 % (39-51); HEMOGLOBIN 7.8 g/dL (13.5-17.5); LYMPHOCYTES # (AUTO) 2.2 /CMM (0.8-4.8); LYMPHOCYTES % (AUTO) 24.2 % (20.0-44.0); MEAN CORPUSCULAR HEMOGLOBIN 32 PG (26.0-33.0); MEAN CORPUSCULAR HGB CONC 35 g/dl (31.0-36.0); MEAN CORPUSCULAR VOLUME 91 fL (80-96); MONOCYTES # (AUTO) 0.9 /CMM (0.1-1.30); MONOCYTES % (AUTO) 9.5 % (2.0-12.0); PLATELET COUNT (AUTO) 134 /CMM (150-450); RDW COEFFICIENT OF VARIATION 13.4 (11.5-15.0); RED BLOOD CELL COUNT(AUTO) 2.48 MIL/uL (4.5-6.0); WHITE BLOOD COUNT (AUTO) 9.1 K/uL (4.3-11.0)
[2017-07-26 08:00] VITALS: BP 91/35
--- NOTE | 2017-07-26 08:44 | NUR ---
GAVE REPORT TO SHIRA
[2017-07-26] MEDS: MEMANTINE HCL 5 MG TABLET PO SCH ×2 (09:33→17:52)
[2017-07-26] MEDS: CHOLECALCIFEROL 1,000 UNIT TABLET (VIT D3) PO SCH (09:33)
--- NOTE | 2017-07-26 09:37 | NUR ---
PROTONIX HELD. LAST DOSE 035
--- NOTE | 2017-07-26 10:36 | NUR ---
spoke with danae, pt's daughter and stated that pt's caregiver will bring olmesartan today.
--- NOTE | 2017-07-26 19:30 | NUR ---
MS RN OPENING NOTES: PATIENT IN BED, AOX1, ON ROOM AIR AT THIS TIME, BREATHING EVEN AND UNLABORED. APPEARS CLAM AND IN NO DISTRESS, DENIES PAIN. PATIENT HAS 3 INCISION SITES OVER LEFT HIP/ LEFT LATERAL UPPER THIGH, WITH ERIC, PROTECTED WITH MEPILEX. PIV OVER RAC G 18 INTACT AND PATENT TO FLUSH. PROVIDED FOR COMFORT AND SAFETY. BED IN LOWEST AND LOCKED POSITION, SIDERAILS UP X 3, BED ALARMS ON. WILL CONT TO MONITOR.
--- NOTE | 2017-07-26 19:39 | NUR ---
RN CLOSING NOTES: ALERT, FORGETFUL. NO C/O PAIN. EATING WELL. INCONTINENCE CARE DONE. L HIP AND THIGH WITH ERIC WITH NON BORDERED MEPILEX. TURNED AND REPOSITIONED FOR COMFORT. BED LOW AND LOCKED. CALL LIGHT WITHIN REACHED. WILL CONTINUE TO MONITOR.
[2017-07-26 20:00] VITALS: BP 96/44
[2017-07-26] MEDS: SIMVASTATIN 20 MG TABLET PO SCH (21:51)
[2017-07-27 04:00] VITALS: BP 104/50
--- NOTE | 2017-07-27 06:33 | NUR ---
MS RN CLOSING NOTES: PATIENT IN BED, AOX1, ON O2 AT 2 LPM VIA NC, BREATHING EVEN AND UNLABORED. APPEARS CALM AND IN NO DISTRESS. PIV OVER RAC G 18 INTACT AND PATENT TO FLUSH. PROVIDED FOR COMFORT AND SAFETY. BED IN LOWEST AND LOCKED POSITION, SIDERAILS UP X 3. WILL ENDORSE TO AM RN FOR NEYDA.
--- NOTE | 2017-07-27 07:32 | NUR ---
MS RN OPENING NOTES: PATIENT RECEIVED AWAKE IN BED IN NO ACUTE SIGNS OF DISTRESS. HOB ELEVATED. AOX1, NO SIGNS OF DISCOMFORTS OR PAIN LIKE FACIAL GRIMACING NOTED AT THIS TIME. ON 02 VIA N/C @ 2LPM, BREATHING EVEN AND UNLABORED. PATIENT HAS 3 INCISION SITES ON LEFT HIP/ LEFT LATERAL & UPPER THIGH WITH ERIC, PROTECTED WITH MEPILEX. IV ACCESS ON RAC G#18 INTACT AND PATENT. BED IN LOWEST AND LOCKED POSITION WITH SIDE-RAILS UP X 3. BED ALARMS ON. WILL MAINTAIN ALL SAFETY MEASURES AND WILL CONT TO MONITOR PT ACCORDINGLY.
[2017-07-27 07:48] LABS: BASOPHILS % (AUTO) 0.5 % (0.0-2.0); HEMATOCRIT 23 % (39-51); HEMOGLOBIN 7.7 g/dL (13.5-17.5); LYMPHOCYTES # (AUTO) 2.2 /CMM (0.8-4.8); LYMPHOCYTES % (AUTO) 23.9 % (20.0-44.0); MEAN CORPUSCULAR HEMOGLOBIN 32 PG (26.0-33.0); MEAN CORPUSCULAR HGB CONC 34 g/dl (31.0-36.0); MEAN CORPUSCULAR VOLUME 93 fL (80-96); MONOCYTES # (AUTO) 0.6 /CMM (0.1-1.30); MONOCYTES % (AUTO) 6.6 % (2.0-12.0); NEUTROPHILS # (AUTO) 6.3 /CMM (1.8-8.9); PLATELET COUNT (AUTO) 136 /CMM (150-450); RDW COEFFICIENT OF VARIATION 14.6 (11.5-15.0); RED BLOOD CELL COUNT(AUTO) 2.41 MIL/uL (4.5-6.0); WHITE BLOOD COUNT (AUTO) 9.2 K/uL (4.3-11.0)
[2017-07-27 08:00] VITALS: BP 106/59
[2017-07-27 08:05] LABS: CALCIUM, SERUM 7.5 mg/dL (8.5-10.1); CARBON DIOXIDE 28 mmol/L (21-32); CHLORIDE 108 mmol/L (98-107); CREATININE 1.2 mg/dL (0.6-1.3); GLUCOSE 85 mg/dL (74-106); MAGNESIUM 1.8 mg/dL (1.8-2.4); PHOSPHORUS 2.3 mg/dL (2.5-4.9); POTASSIUM 3.4 mmol/L (3.5-5.1); SODIUM SERUM 142 mmol/L (136-145); UREA NITROGEN, BLOOD 42 mg/dL (7-18)
[2017-07-27] MEDS: PANTOPRAZOLE 40 MG VIAL IV SCH ×2 (08:55→21:47)
[2017-07-27] MEDS: MEMANTINE HCL 5 MG TABLET PO SCH ×2 (08:56→16:04)
[2017-07-27] MEDS: LOSARTAN POTASSIUM 50 MG TABLET PO SCH (08:56)
[2017-07-27] MEDS: CHOLECALCIFEROL 1,000 UNIT TABLET (VIT D3) PO SCH (08:56)
--- NOTE | 2017-07-27 09:18 | NUR ---
WOUND CARE CONSULT: PT PRESENTS WITH SKIN ISSUES PRESENT ON ADMISSION INCLUDING STAGE 2 ULCERS TO SACRAL/BUTTOCKS AREA, DEEP TISSUE INJURY TO LEFT LATERAL ANKLE, CLOSED INCISIONS TO LEFT HIP AND THIGH WITH ERIC,ALL PRESENT ON ADMISSION. DEFER TO ORTHO FOLLOWUP FOR HIP/THIGH. RECOMMENDATIONS MADE FOR SKIN PROTECTION AND WOUND CARE. DISCUSSED WITH NURSING STAFF. PT TO BE PLACED ON CHANTEL ISOFLEX LOW AIRLOSS BED. WILL SEE PRN. IBARRA IN AGREEMENT WITH PLAN OF CARE. Addendum: 07/27/17 at 0932 by MATT REDDY WNDNU Amended: Links added.
[2017-07-27] MEDS ORDERED: POTASSIUM CHLORIDE 20 MEQ TAB.PRT.SR PO SCH (11:30)
[2017-07-27] MEDS: HYDROGEL DRESSING 90 GM TUBE TP PRN (11:39)
[2017-07-27] MEDS: HYDROGEL DRESSING 90 GM TUBE TP SCH (11:41)
[2017-07-27] MEDS ORDERED: K PHOS NEUTRAL 250 MG TABLET PO ONE (15:00)
--- NOTE | 2017-07-27 19:02 | NUR ---
MS RN CLOSING NOTES: PATIENT AWAKE AND RESTING AT MODERATE HIGH BACKREST IN BED. AOX1, CONFUSED. ALL NEEDS AND CARE PROVIDED WELL. ON 02 VIA N/C @ 2LPM, PT KEEPS REMOVING IT. BREATHING EVEN AND UNLABORED, NO SOB NOTED. 3 INCISIONAL SITES ON LEFT HIP/ LEFT LATERAL & UPPER THIGH WITH ERIC, PROTECTED WITH MEPILEX. IV ACCESS ON RAC G#18 INTACT AND PATENT, FLUSHES WELL. HOB KEPT ELEVATED. BED IN LOWEST AND LOCKED POSITION WITH SIDE-RAILS UP X 3. BED ALARMS ON. ALL SAFETY MEASURES MAINTAINED. WILL ENDORSED TO PLANT GUIDE NURSE FOR NEYDA.
[2017-07-27 20:00] VITALS: BP 103/49
[2017-07-27] MEDS: SIMVASTATIN 20 MG TABLET PO SCH (21:47)
[2017-07-28] MEDS: HYDROCODONE/APAP 5/325MG 1 EACH TABLET PO PRN ×2 (01:06→06:05)
--- NOTE | 2017-07-28 01:10 | NUR ---
MED NOTE: PT COMPLAINT OF KNEE PAIN, UNSPECIFIED PAIN SCALE. NORCO ADMINISTERED ORDERED.
[2017-07-28 04:00] VITALS: BP 105/52
[2017-07-28 06:48] LABS: BASOPHILS # (AUTO) 0.1 /CMM (0.0-0.2); BASOPHILS % (AUTO) 1.8 % (0.0-2.0); EOSINOPHILS % (AUTO) 0.7 % (0.0-6.0); HEMATOCRIT 23 % (39-51); HEMOGLOBIN 7.9 g/dL (13.5-17.5); LYMPHOCYTES # (AUTO) 1.6 /CMM (0.8-4.8); LYMPHOCYTES % (AUTO) 25.6 % (20.0-44.0); MEAN CORPUSCULAR HEMOGLOBIN 32 PG (26.0-33.0); MEAN CORPUSCULAR HGB CONC 34 g/dl (31.0-36.0); MEAN CORPUSCULAR VOLUME 94 fL (80-96); MONOCYTES # (AUTO) 0.6 /CMM (0.1-1.30); MONOCYTES % (AUTO) 10.4 % (2.0-12.0); NEUTROPHILS # (AUTO) 3.8 /CMM (1.8-8.9); NEUTROPHILS % (AUTO) 61.5 % (43.0-81.0); PLATELET COUNT (AUTO) 145 /CMM (150-450); RDW COEFFICIENT OF VARIATION 15.4 (11.5-15.0); RED BLOOD CELL COUNT(AUTO) 2.47 MIL/uL (4.5-6.0); WHITE BLOOD COUNT (AUTO) 6.2 K/uL (4.3-11.0)
[2017-07-28 06:53] LABS: CALCIUM, SERUM 7.5 mg/dL (8.5-10.1); CARBON DIOXIDE 29 mmol/L (21-32); CHLORIDE 107 mmol/L (98-107); GLUCOSE 92 mg/dL (74-106); POTASSIUM 3.7 mmol/L (3.5-5.1); SODIUM SERUM 141 mmol/L (136-145); UREA NITROGEN, BLOOD 30 mg/dL (7-18)
[2017-07-28 08:00] VITALS: BP 96/49
--- NOTE | 2017-07-28 08:00 | NUR ---
AM RN NOTE Received patient sleeping comfortably in his bed, arouses upon touch. Resp even and non-labored. IV site intact and patent. Will continue to monitor. Bed in low locked position.
[2017-07-28] MEDS: CHOLECALCIFEROL 1,000 UNIT TABLET (VIT D3) PO SCH (08:55)
[2017-07-28] MEDS: MEMANTINE HCL 5 MG TABLET PO SCH ×2 (08:55→17:21)
[2017-07-28] MEDS: PANTOPRAZOLE 40 MG VIAL IV SCH ×2 (08:55→21:09)
[2017-07-28] MEDS: LOSARTAN POTASSIUM 50 MG TABLET PO SCH (08:56)
[2017-07-28] MEDS: HYDROGEL DRESSING 90 GM TUBE TP SCH (08:57)
[2017-07-28] MEDS: HYDROGEL DRESSING 90 GM TUBE TP PRN (08:57)
[2017-07-28] MEDS ORDERED: PANTOPRAZOLE 40 MG VIAL IV SCH (09:00)
[2017-07-28] MEDS: SUCRALFATE 1 G TABLET PO SCH ×4 (09:01→22:01)
--- NOTE | 2017-07-28 18:20 | NUR ---
AM RN NOTE Patient awake, resting at this time, no acute distress noted. IV site intact. Will continue to monitor and endorse care to next shift.
--- NOTE | 2017-07-28 19:35 | NUR ---
NMS1 RN NOTES RECEIVED ON BED SLEEPING,EASILY AROUSABLE TO TACTILE STIMULI.BREATHING REGULAR,NOT IN ANY FORM OF DISTRESS.PALE LOOKING DUE TO ANEMIA.SALINE LOCK RIGHT AC INTACT AND PATENT.WITH SKIN DISCOLORATION ON BOTH LEGS.ABLE TO VERBALIZED NEEDS.CALL LIGHT IN REACH,NEEDS ANTICIPATED.
[2017-07-28 21:00] VITALS: BP 98/49
[2017-07-28] MEDS: SIMVASTATIN 20 MG TABLET PO SCH (22:01)
[2017-07-29 04:00] VITALS: BP 111/52
--- NOTE | 2017-07-29 06:30 | NUR ---
MS1 RN NOTES NO SIGNIFICANT CHANGE IN STATUS.SLEPT WELL AT NOC.REPOSITION PER PROTOCOL.STOOL FOR COLLECTED WILL SEND TO LAB.CALL LIGHT IN REACH,NEEDS ATTENDED.WILL ENDORSE TO DAY NURSE FOR NEYDA.
[2017-07-29 07:10] LABS: CALCIUM, SERUM 7.6 mg/dL (8.5-10.1); CARBON DIOXIDE 28 mmol/L (21-32); CHLORIDE 105 mmol/L (98-107); GLUCOSE 96 mg/dL (74-106); POTASSIUM 3.7 mmol/L (3.5-5.1); SODIUM SERUM 131 mmol/L (136-145); UREA NITROGEN, BLOOD 24 mg/dL (7-18)
--- NOTE | 2017-07-29 07:30 | NUR ---
RN MS NOTES PT IN BED, AWAKE, ALERT AND ORIENTED, NO COMPLAINT OF PAIN, BREATHING PATTERN NORMAL, CALL LIGHT WITHIN REACH, KEPT COMFORTABLE.
[2017-07-29 07:35] LABS: BASOPHILS % (AUTO) 0.6 % (0.0-2.0); EOSINOPHILS # (AUTO) 0.1 /CMM (0.0-0.7); EOSINOPHILS % (AUTO) 1.2 % (0.0-6.0); HEMATOCRIT 23 % (39-51); HEMOGLOBIN 7.9 g/dL (13.5-17.5); LYMPHOCYTES # (AUTO) 2.2 /CMM (0.8-4.8); LYMPHOCYTES % (AUTO) 31.9 % (20.0-44.0); MEAN CORPUSCULAR HEMOGLOBIN 33 PG (26.0-33.0); MEAN CORPUSCULAR HGB CONC 35 g/dl (31.0-36.0); MEAN CORPUSCULAR VOLUME 94 fL (80-96); MONOCYTES # (AUTO) 0.7 /CMM (0.1-1.30); MONOCYTES % (AUTO) 9.8 % (2.0-12.0); NEUTROPHILS # (AUTO) 3.9 /CMM (1.8-8.9); NEUTROPHILS % (AUTO) 56.5 % (43.0-81.0); PLATELET COUNT (AUTO) 144 /CMM (150-450); RDW COEFFICIENT OF VARIATION 15.2 (11.5-15.0); RED BLOOD CELL COUNT(AUTO) 2.41 MIL/uL (4.5-6.0); WHITE BLOOD COUNT (AUTO) 6.8 K/uL (4.3-11.0)
[2017-07-29 08:00] VITALS: BP 101/51
[2017-07-29] MEDS: SUCRALFATE 1 G TABLET PO SCH ×4 (08:27→21:15)
[2017-07-29] MEDS: PANTOPRAZOLE 40 MG VIAL IV SCH ×2 (08:27→21:15)
[2017-07-29] MEDS: MEMANTINE HCL 5 MG TABLET PO SCH ×2 (08:27→16:30)
[2017-07-29] MEDS: CHOLECALCIFEROL 1,000 UNIT TABLET (VIT D3) PO SCH (08:27)
[2017-07-29] MEDS: LOSARTAN POTASSIUM 50 MG TABLET PO SCH (08:28)
[2017-07-29] MEDS: HYDROGEL DRESSING 90 GM TUBE TP SCH (08:30)
--- NOTE | 2017-07-29 12:00 | NUR ---
RN MS NOTES PT IN BED, RESTING, ALERT TO SELF, DENIES PAIN, VERBALLY RESPONSIVE, CALL LIGHT WITHIN REACH, TURNED AND REPOSITIONED Q2 HRS, KEPT SKIN CLEAN AND DRY.
[2017-07-29] MEDS: IV NS 0.9% 1,000 ML IV PRN (13:20)
--- NOTE | 2017-07-29 14:47 | NUR ---
RN MS NOTES PT WITH EPISODES OF BLACK TARRY STOOL, NO N/V NOTED, NO CHANGE IN LOC, DR. VILLEGAS MADE AWARE, ALSO NOTED REDNESS AT INCISION SITE WITH ERIC, KEPT OFFLOADED, MD AWARE, WILL CONTINUE TO MONITOR.
[2017-07-29 16:00] VITALS: BP 130/62
--- NOTE | 2017-07-29 18:42 | NUR ---
RN MS NOTES PT IN BED, AWAKE, ALERT TO SELF, REDIRECTED NEEDED, IV FLUIDS INFUSING WELL, NEW SALINE LOCK AT LEFT FOREARM INTACT AND PATENT, PM CARE RENDERED, PM MEDS GIVEN, TURNED AND REPOSITIONED Q2 HRS, SKIN TREATMENTS DONE, KEPT WARM AND COMFORTABLE.
[2017-07-29 20:00] VITALS: BP 129/68
--- NOTE | 2017-07-29 20:00 | NUR ---
MS RN NOTE PT IN BED AWAKE, A/O X 2, CONFUSED . NO SOB, NO DISTRESS OR DISCOMFORT NOTED. DENIES PAIN. PT HAS NO IV LINE AT THIS TRIED TO INSERT X 2 BUT NO SUCCESS, PT IS HARD STICK WILL TRY LATER. ALL NEEDS ATTENDED. SIDE RAILS UP X 2 AND CALL LIGHT WITHIN REACH. VSS. CONTINUE TO MONITOR HIM.
--- NOTE | 2017-07-29 20:01 | NUR ---
MS RN NOTE PT KEPT ON REMOVING MITTENS.
[2017-07-29] MEDS: SIMVASTATIN 20 MG TABLET PO SCH (21:15)
--- NOTE | 2017-07-29 22:00 | NUR ---
MS RN NOTE PT IS KEPT ON REMOVING HIS GOWN AND O2 N/C. PT IS UNABLE TO KEEP HIS MITTENS ON. DR CHACKO INFORMED AND RECEIVED NEW ORDER, ORDER NOTED AND CARRIED OUT. APPLIED BILATERAL SOFT WRIST RESTRAINTS. ALSO ED FROM ICU CAME TO INSERT IV LINE. INSERTED RIJ # 20 G WITH GOOD BACK FLOW OF BLOOD. RESUMED IVF NS @ 75 ML/HR, NO S/S OF INFILTRATION NOTED.
--- NOTE | 2017-07-30 00:50 | NUR ---
MS RN NOTE PT SOMEHOW UNTIED HIMSELF FROM RT ARM AND PULLED THE RIJ IV LINE OUT. NO BLEEDING NOTED. PT IS VERY CONFUSED. STATES "I DID NOT DO IT". WILL TRY TO REINSERT IV LINE LATER.
--- NOTE | 2017-07-30 01:30 | NUR ---
MS RN NOTE ED FROM ICU CAME TO REINSERT NEW IV LINE IN RIJ #20 G WITH GOOD BACK FLOW OF BLOOD. RESUMED IVF, NO S/S OF INFILTRATION NOTED. BILATERAL SOFT WRIST RESTRAINTS ON.
--- NOTE | 2017-07-30 04:06 | NUR ---
MS RN NOTE PT IN NO DISTRESS OR DISCOMFORT. ASLEEP. PT ENDORSE TO NURSE MADRIGAL FOR CONTINUE TO CARE.
--- NOTE | 2017-07-30 06:52 | NUR ---
MS RN NOTE PATIENT STABLE. WILL ENDORSE TO DAY SHIFT FOR NEYDA.
--- NOTE | 2017-07-30 07:30 | NUR ---
MS RN OPENING RECEIVED PATIENT A/OX1 TO SELF. PATIENT PLEASANT AND COOPERATIVE. WITH RESTRAINTS ON AND STILL AT THIS TIME ATTEMPTING TO REACH NECK AND PULL AT IV LINE. ASSISTED WITH ROM AND REMOVAL OF RESTRAINTS AT BEDSIDE. PROVIDED WATER AND FOOD. PATIENT DENIES SOB, DIFFICULTY BREATHING OR PAIN WHEN ASKED. AND NO S/S OF SOB OR PAIN. NC 2LPM 98% WILL TITRATE TOLERATED. PATIENT BED LOWERED AND LOCKED, RAILS UPX3 FOR SAFETY BED ALARM ON. DESK OFFICER AT BEDSIDE TO ASSIST WITH BREAKFAST. PATIENT APPEARS STABLE AT THIS TIME. WILL ROUND NEEDED
[2017-07-30 07:54] LABS: BASOPHILS % (AUTO) 0.4 % (0.0-2.0); EOSINOPHILS % (AUTO) 0.6 % (0.0-6.0); HEMATOCRIT 24 % (39-51); HEMOGLOBIN 8.4 g/dL (13.5-17.5); LYMPHOCYTES # (AUTO) 1.8 /CMM (0.8-4.8); LYMPHOCYTES % (AUTO) 23.3 % (20.0-44.0); MEAN CORPUSCULAR HEMOGLOBIN 32 PG (26.0-33.0); MEAN CORPUSCULAR HGB CONC 35 g/dl (31.0-36.0); MEAN CORPUSCULAR VOLUME 94 fL (80-96); MONOCYTES # (AUTO) 0.8 /CMM (0.1-1.30); NEUTROPHILS % (AUTO) 65.7 % (43.0-81.0); PLATELET COUNT (AUTO) 168 /CMM (150-450); RDW COEFFICIENT OF VARIATION 15.2 (11.5-15.0); RED BLOOD CELL COUNT(AUTO) 2.59 MIL/uL (4.5-6.0); WHITE BLOOD COUNT (AUTO) 7.7 K/uL (4.3-11.0)
[2017-07-30 08:00] VITALS: BP 113/64
[2017-07-30 08:14] LABS: CALCIUM, SERUM 7.6 mg/dL (8.5-10.1); CARBON DIOXIDE 28 mmol/L (21-32); CHLORIDE 107 mmol/L (98-107); CREATININE 0.9 mg/dL (0.6-1.3); GLUCOSE 92 mg/dL (74-106); POTASSIUM 3.7 mmol/L (3.5-5.1); SODIUM SERUM 140 mmol/L (136-145); UREA NITROGEN, BLOOD 22 mg/dL (7-18)
[2017-07-30] MEDS: CHOLECALCIFEROL 1,000 UNIT TABLET (VIT D3) PO SCH (08:26)
[2017-07-30] MEDS: PANTOPRAZOLE 40 MG VIAL IV SCH ×2 (08:27→20:13)
[2017-07-30] MEDS: LOSARTAN POTASSIUM 50 MG TABLET PO SCH (08:27)
[2017-07-30] MEDS: SUCRALFATE 1 G TABLET PO SCH ×4 (08:27→21:28)
[2017-07-30] MEDS: HYDROGEL DRESSING 90 GM TUBE TP SCH (08:28)
[2017-07-30] MEDS: MEMANTINE HCL 5 MG TABLET PO SCH ×2 (08:29→16:50)
[2017-07-30] MEDS: IV NS 0.9% 1,000 ML IV PRN ×2 (08:37→17:20)
[2017-07-30] MEDS ORDERED: IV NS 0.9% 1,000 ML BAG IV SCH (09:00)
--- NOTE | 2017-07-30 13:54 | NUR ---
MS RN NOTES WHILE MOLD CLEANER CHANGING PATIENT, PATIENT REACHED UP AND PULLED IV LINE OUT. CATH TIP INTACT. PRESSURE AND DRESSING APPLIED NO BLEEDING NOTED. PATIENT HARD STICK UNABLE TO INSERT ANOTHER. WILL F/U WITH
--- NOTE | 2017-07-30 14:16 | NUR ---
MS RN NOTES PER CLAIRE NO REMOVAL OF ERIC YET. CONTINUE TO COVER WITH DRESSINGS
[2017-07-30 16:00] VITALS: BP 112/59
--- NOTE | 2017-07-30 19:13 | NUR ---
MS RN CLOSING PATIENT STABLE. NEW SURGICAL DRESSING APPLIED TO LEFT HIP. ALL DUE MEDS GIVEN AND ALL NEEDS MET. PATIENT STABLE AT THIS TIME. IVF RUNNING ORDERED. RESTRAINTS ON PER ORDER. RELEASED RESTRAINTS THROUGHOUT DAY ROM PROVIDED AND HYGIENE. PATIENT CARE ENDORSED TO RN FOR NEYDA
--- NOTE | 2017-07-30 20:00 | NUR ---
MS RN NOTE PT IN BED AWAKE. A/O X 1, CONFUSED. DTR AT BED SIDE. NO SOB, NO DISTRESS OR DISCOMFORT NOTED. DENIES PAIN. PT CONTINUE WITH BILATERAL WRIST RESTRAINTS, IVF NS @ 75 ML/HR INFUSING WELL, NO S/S OF INFILTRATION NOTED LT HAND # 20 G. KEPT HIM DRY AND CLEAN. ALL NEEDS ATTENDED. SIDE RAILS UP X 2 AND CALL LIGHT WITH IN REACH. CONTINUE TO MONITOR HIM.
[2017-07-30] MEDS: HYDROCODONE/APAP 5/325MG 1 EACH TABLET PO PRN (20:13)
[2017-07-30] MEDS: SIMVASTATIN 20 MG TABLET PO SCH (21:28)
[2017-07-31] VITALS: BP 136/77
[2017-07-31 04:00] VITALS: BP 140/87
--- NOTE | 2017-07-31 06:36 | NUR ---
MS RN NOTE PT IN BED ASLEEP, AROUSABLE. CONFUSED. NO DISTRESS OR DISCOMFORT NOTED. SOFT WRIST RESTRAINTS ON BILATERAL. IVF INFUSING WELL, NO S/S OF INFILTRATION NOTED. REPOSITION HIM Q2H, KEPT HIM DRY AND CLEAN. ALL NEEDS ATTENDED. SIDE RAILS UP X3 AND CALL LIGHT WITHIN REACH. WILL ENDORSE TO DAY SHIFT NURSE FOR CONTINUE TO CARE.
[2017-07-31] MEDS: IV NS 0.9% 1,000 ML IV PRN (06:55)
[2017-07-31 07:25] LABS: BASOPHILS % (AUTO) 0.3 % (0.0-2.0); EOSINOPHILS # (AUTO) 0.2 /CMM (0.0-0.7); EOSINOPHILS % (AUTO) 2.8 % (0.0-6.0); HEMATOCRIT 24 % (39-51); LYMPHOCYTES # (AUTO) 1.8 /CMM (0.8-4.8); LYMPHOCYTES % (AUTO) 20.9 % (20.0-44.0); MEAN CORPUSCULAR HEMOGLOBIN 32 PG (26.0-33.0); MEAN CORPUSCULAR HGB CONC 34 g/dl (31.0-36.0); MEAN CORPUSCULAR VOLUME 94 fL (80-96); MONOCYTES # (AUTO) 0.7 /CMM (0.1-1.30); MONOCYTES % (AUTO) 8.6 % (2.0-12.0); NEUTROPHILS # (AUTO) 5.9 /CMM (1.8-8.9); NEUTROPHILS % (AUTO) 67.4 % (43.0-81.0); PLATELET COUNT (AUTO) 180 /CMM (150-450); RDW COEFFICIENT OF VARIATION 15.1 (11.5-15.0); RED BLOOD CELL COUNT(AUTO) 2.52 MIL/uL (4.5-6.0); WHITE BLOOD COUNT (AUTO) 8.7 K/uL (4.3-11.0)
[2017-07-31] MEDS: SUCRALFATE 1 G TABLET PO SCH ×3 (07:30→17:25)
[2017-07-31 07:37] LABS: CALCIUM, SERUM 7.7 mg/dL (8.5-10.1); CREATININE 0.9 mg/dL (0.6-1.3); GLUCOSE 86 mg/dL (74-106); UREA NITROGEN, BLOOD 18 mg/dL (7-18)
[2017-07-31 07:42] LABS: CARBON DIOXIDE 25 mmol/L (21-32); CHLORIDE 105 mmol/L (98-107); POTASSIUM 3.5 mmol/L (3.5-5.1); SODIUM SERUM 138 mmol/L (136-145)
--- NOTE | 2017-07-31 07:42 | NUR ---
RN INITIAL NOTE PT STABLE CONSENT SIGNED AND CHECK LIST DONE FOR EGD THIS AM. WILL CONTINUE TO MONITOR CLOSELY. ALL SAFETY MEASURES IN PLACE.
[2017-07-31] MEDS: PANTOPRAZOLE 40 MG VIAL IV SCH ×2 (08:45→21:39)
[2017-07-31] MEDS: MEMANTINE HCL 5 MG TABLET PO SCH ×2 (08:45→17:25)
[2017-07-31] MEDS: HYDROGEL DRESSING 90 GM TUBE TP SCH (08:46)
[2017-07-31] MEDS: CHOLECALCIFEROL 1,000 UNIT TABLET (VIT D3) PO SCH (08:46)
[2017-07-31] MEDS: LOSARTAN POTASSIUM 50 MG TABLET PO SCH (09:00)
--- NOTE | 2017-07-31 10:05 | NUR ---
RN NOTE RENEWED BILATERAL RESTRAINTS PT CONFUSED AND ATTEMPTING TO REMOVE IV. PT PULLING @ LIFESUSTAINING DEVICES AND EQUIPMENT
--- NOTE | 2017-07-31 10:20 | NUR ---
RN NOTE PT TAKEN FOR EGD.
--- NOTE | 2017-07-31 11:36 | NUR ---
RN NOTE PT RETURN FROM EGD PT STABLE. DR. MATOS ORDERED [facility] [place] DIET FOR PT. PT ABLE TO DRINK WATER . PT NOT COUGHING ADVANCED DIET.
[2017-07-31] MEDS: SIMVASTATIN 20 MG TABLET PO SCH (21:39)
[2017-08-01] MEDS: oxyCODONE/APAP (5/325 MG) 1 UDTAB TABLET PO PRN ×2 (03:41→13:01)
[2017-08-01] MEDS: IV NS 0.9% 1,000 ML IV PRN (03:48)
[2017-08-01 04:46] VITALS: BP 130/80
[2017-08-01 08:00] VITALS: BP 139/85
--- NOTE | 2017-08-01 08:00 | NUR ---
STAPLE INTACT LT. HIP DRESSING.
[2017-08-01] MEDS: PANTOPRAZOLE 40 MG VIAL IV SCH (10:45)
[2017-08-01] MEDS: LOSARTAN POTASSIUM 50 MG TABLET PO SCH (10:46)
[2017-08-01] MEDS: CHOLECALCIFEROL 1,000 UNIT TABLET (VIT D3) PO SCH (10:46)
[2017-08-01] MEDS: SUCRALFATE 1 G TABLET PO SCH ×3 (10:46→18:29)
[2017-08-01] MEDS: MEMANTINE HCL 5 MG TABLET PO SCH ×2 (10:46→18:29)
[2017-08-01] MEDS: HYDROGEL DRESSING 90 GM TUBE TP SCH (10:48)
[2017-08-01 15:29] LABS: EOSINOPHILS # (AUTO) 0.1 /CMM (0.0-0.7); EOSINOPHILS % (AUTO) 1.6 % (0.0-6.0); HEMATOCRIT 21 % (39-51); HEMOGLOBIN 7.5 g/dL (13.5-17.5); LYMPHOCYTES # (AUTO) 1.1 /CMM (0.8-4.8); LYMPHOCYTES % (AUTO) 13.6 % (20.0-44.0); MEAN CORPUSCULAR HEMOGLOBIN 32 PG (26.0-33.0); MEAN CORPUSCULAR HGB CONC 35 g/dl (31.0-36.0); MEAN CORPUSCULAR VOLUME 92 fL (80-96); MONOCYTES # (AUTO) 0.8 /CMM (0.1-1.30); MONOCYTES % (AUTO) 9.6 % (2.0-12.0); NEUTROPHILS # (AUTO) 6.4 /CMM (1.8-8.9); NEUTROPHILS % (AUTO) 75.2 % (43.0-81.0); PLATELET COUNT (AUTO) 250 /CMM (150-450); RDW COEFFICIENT OF VARIATION 13.9 (11.5-15.0); RED BLOOD CELL COUNT(AUTO) 2.33 MIL/uL (4.5-6.0); WHITE BLOOD COUNT (AUTO) 8.4 K/uL (4.3-11.0)
[2017-08-01 16:00] VITALS: BP 111/67
[2017-08-01] MEDS ORDERED: LACT1CAP89 PO (16:43)
[2017-08-01] MEDS ORDERED: PANT40TA2 PO (16:43)
[2017-08-01] MEDS ORDERED: SUCR1TAB PO (16:43)
--- NOTE | 2017-08-01 18:00 | NUR ---
DR. REDDY IN FOR LATE DISCHARGE,PT. REFUSED PHOTOS AND FIGHTING RN WITH ANY MOVING,MEDICATED X1 WITH PERCOCETTE.
--- NOTE | 2017-08-01 19:15 | NUR ---
AMBULANCE HERE,HEP LOCK OUT. REPORT TO DRIVERS AND WELL REPORT CALLED TO FACILITY.
== END 2017-08-01 19:30 | DRG 377 ==
LOC: ER 20:28 → TELE-TD 07-26 02:13 → MEDSG1 07-26 06:30
PROVIDERS: ADMIT Internal Medicine; ATTEND Internal Medicine
PROC: 30233N1 Transfusion of Nonautologous Red Blood Cells into Peripheral Vein, Percutaneous Approach (ICD-10-PCS; 2017-07-26)
PROC: 0DB78ZX Excision of Stomach, Pylorus, Via Natural or Artificial Opening Endoscopic, Diagnostic (ICD-10-PCS; principal; 2017-07-31 10:35)
DX: K25.0 Acute gastric ulcer with hemorrhage (principal); G93.41 Metabolic encephalopathy; N17.0 Acute kidney failure with tubular necrosis; E43 Unspecified severe protein-calorie malnutrition; I95.9 Hypotension, unspecified; E11.22 Type 2 diabetes mellitus with diabetic chronic kidney disease; D68.59 Other primary thrombophilia; E88.09 Other disorders of plasma-protein metabolism, not elsewhere classified; K22.2 Esophageal obstruction; D62 Acute posthemorrhagic anemia; E66.01 Morbid (severe) obesity due to excess calories; E78.5 Hyperlipidemia, unspecified; I12.9 Hypertensive chronic kidney disease with stage 1 through stage 4 chronic kidney disease, or unspecified chronic kidney disease; K44.9 Diaphragmatic hernia without obstruction or gangrene; N18.9 Chronic kidney disease, unspecified; G30.9 Alzheimer's disease, unspecified; F02.80 Dementia in other diseases classified elsewhere, unspecified severity, without behavioral disturbance, psychotic disturbance, mood disturbance, and anxiety; K29.70 Gastritis, unspecified, without bleeding; Z96.652 Presence of left artificial knee joint; M62.50 Muscle wasting and atrophy, not elsewhere classified, unspecified site; Z68.23 Body mass index [BMI] 23.0-23.9, adult; E86.9 Volume depletion, unspecified; Z79.1 Long term (current) use of non-steroidal anti-inflammatories (NSAID); Z79.84 Long term (current) use of oral hypoglycemic drugs
CPT/HCPCS: 36415; 80048-TC; 80076-TC; 82272-TC; 83735-TC; 84100-TC; 85025-TC; 85730-TC; 86850-TC; 86921-TC; 88305-TC; 88313-TC; 88342; A6248; A6402; C9113; J2704; J7030; J7050; P9016-BL

== ENCOUNTER 2018-01-24 15:58 | Inpatient (IN) | payer MEDICARE, OTHER ==
[~2018-01-24] VITALS: Ht 170.2 cm; Wt 66.8 kg
[~2018-01-24 15:58] MED LIST changes: -ENOX40DI SQ; +LACT1CAP89 PO; +OLME20TA13 PO; -OLME20TA21 PO; +PANT40TA2 PO; +SUCR1TAB PO
[2018-01-24] MEDS ORDERED: SIMV20TA6 PO (16:30)
[2018-01-24] MEDS ORDERED: SUCR1TAB31 PO (16:30)
[2018-01-24] MEDS ORDERED: BISA10SU8 RC (16:30)
[2018-01-24] MEDS ORDERED: RIVA10TA PO (16:30)
[2018-01-24] MEDS ORDERED: MULT-447 PO (16:30)
[2018-01-24] MEDS ORDERED: NA P133E RC (16:30)
[2018-01-24] MEDS ORDERED: MAGN400O6 PO (16:30)
[2018-01-24] MEDS ORDERED: ACET-868 PO (16:30)
[2018-01-24] MEDS ORDERED: DOCU-141 PO (16:30)
[2018-01-24] MEDS ORDERED: HALO0.5T4 PO (16:30)
[2018-01-24] MEDS ORDERED: LOSA50TA3 PO (16:30)
[2018-01-24] MEDS ORDERED: PANT40TA2 PO (16:32)
[2018-01-24 17:01] LABS: BASOPHILS # (AUTO) 0.1 /CMM (0.0-0.2); BASOPHILS % (AUTO) 1.1 % (0.0-2.0); EOSINOPHILS % (AUTO) 4.7 % (0.0-6.0); HEMATOCRIT 35 % (39-51); LYMPHOCYTES # (AUTO) 2.8 /CMM (0.8-4.8); LYMPHOCYTES % (AUTO) 36.1 % (20.0-44.0); MEAN CORPUSCULAR HEMOGLOBIN 30 PG (26.0-33.0); MEAN CORPUSCULAR HGB CONC 35 g/dl (31.0-36.0); MEAN CORPUSCULAR VOLUME 86 fL (80-96); MONOCYTES # (AUTO) 0.8 /CMM (0.1-1.30); MONOCYTES % (AUTO) 10.5 % (2.0-12.0); NEUTROPHILS # (AUTO) 3.6 /CMM (1.8-8.9); NEUTROPHILS % (AUTO) 47.6 % (43.0-81.0); PLATELET COUNT (AUTO) 222 /CMM (150-450); RDW COEFFICIENT OF VARIATION 14.7 (11.5-15.0); RED BLOOD CELL COUNT(AUTO) 4.07 MIL/uL (4.5-6.0); WHITE BLOOD COUNT (AUTO) 7.7 K/uL (4.3-11.0)
[2018-01-24 17:29] LABS: ALANINE AMINOTRANSFERASE 23 U/L (12-78); ALBUMIN 2.6 g/dL (3.4-5.0); ALKALINE PHOSPHATASE 150 U/L (46-116); ASPARTATE AMINOTRANSFERASE 26 U/L (15-37); BILIRUBIN,DIRECT 0.1 mg/dL (0.0-0.2); BILIRUBIN,TOTAL 0.3 mg/dL (0.2-1.0); CALCIUM, SERUM 8.5 mg/dL (8.5-10.1); CARBON DIOXIDE 25 mmol/L (21-32); CHLORIDE 106 mmol/L (98-107); CREATININE 1.1 mg/dL (0.6-1.3); GLUCOSE 114 mg/dL (74-106); POTASSIUM 4.3 mmol/L (3.5-5.1); SODIUM SERUM 139 mmol/L (136-145); TOTAL PROTEIN, SERUM 6.8 g/dL (6.4-8.2); UREA NITROGEN, BLOOD 21 mg/dL (7-18)
[2018-01-24] MEDS ORDERED: LIDOCAINE 2% JEL UROJET 10 ML MM ONE (17:55)
[2018-01-24 18:33] LABS: APPEARANCE,URINE Slightly Cloudy (CLEAR); BILIRUBIN,URINE Negative (NEGATIVE); BLOOD, URINE Negative Ery/uL (NEGATIVE); COLOR,URINE Light yellow (YELLOW); KETONES,URINE Negative (NEGATIVE); LEUKOCYTE ESTERASE ,URINE Negative (NEGATIVE); NITRITE, URINE Negative (NEGATIVE); PH,URINE 5.5 (5.0-8.0); PROTEIN,URINE Negative (NEGATIVE); UGLUCOSE Negative (NEGATIVE); UROBILINOGEN,URINE 0.2 EU/dL (0.2)
[2018-01-24 20:20] VITALS: BP 129/82
[2018-01-24 20:31] VITALS: BP 129/82
[2018-01-24] MEDS ORDERED: ACETAMINOPHEN 325 MG TABLET PO PRN (22:00)
[2018-01-24] MEDS ORDERED: HYDROCODONE/APAP 5/325MG 1 EACH TABLET PO PRN (22:00)
[2018-01-24] MEDS ORDERED: ONDANSETRON HCL/PF 4 MG/2 ML VIAL IVP PRN (22:00)
[2018-01-24] MEDS ORDERED: MAG HYDROX/AL HYDROX/SIMETH 30 ML UDC PO PRN (22:00)
[2018-01-24] MEDS ORDERED: MAGNESIUM HYDROXIDE 30 ML UDC PO PRN (22:00)
[2018-01-24] MEDS ORDERED: Z GUARD REMEDY 2 OZ OINT TP PRN (22:00)
[2018-01-24] MEDS ORDERED: ZOLPIDEM TARTRATE 5 MG TABLET PO PRN (22:00)
[2018-01-24] MEDS: IV D5/0.45 NACL 1,000 ML IV PRN (22:11)
[2018-01-25 06:42] LABS: BASOPHILS % (AUTO) 0.5 % (0.0-2.0); EOSINOPHILS % (AUTO) 6.1 % (0.0-6.0); HEMATOCRIT 31 % (39-51); HEMOGLOBIN 10.2 g/dL (13.5-17.5); LYMPHOCYTES # (AUTO) 2.3 /CMM (0.8-4.8); LYMPHOCYTES % (AUTO) 36.6 % (20.0-44.0); MEAN CORPUSCULAR HEMOGLOBIN 29 PG (26.0-33.0); MEAN CORPUSCULAR HGB CONC 33 g/dl (31.0-36.0); MEAN CORPUSCULAR VOLUME 89 fL (80-96); MONOCYTES # (AUTO) 0.7 /CMM (0.1-1.30); MONOCYTES % (AUTO) 11.2 % (2.0-12.0); NEUTROPHILS # (AUTO) 2.8 /CMM (1.8-8.9); NEUTROPHILS % (AUTO) 45.6 % (43.0-81.0); PLATELET COUNT (AUTO) 183 /CMM (150-450); RDW COEFFICIENT OF VARIATION 15.4 (11.5-15.0); RED BLOOD CELL COUNT(AUTO) 3.51 MIL/uL (4.5-6.0); WHITE BLOOD COUNT (AUTO) 6.2 K/uL (4.3-11.0)
[2018-01-25 06:53] LABS: ALANINE AMINOTRANSFERASE 19 U/L (12-78); ALBUMIN 2.3 g/dL (3.4-5.0); ALKALINE PHOSPHATASE 122 U/L (46-116); ASPARTATE AMINOTRANSFERASE 24 U/L (15-37); BILIRUBIN,TOTAL 0.3 mg/dL (0.2-1.0); CALCIUM, SERUM 7.9 mg/dL (8.5-10.1); CARBON DIOXIDE 27 mmol/L (21-32); CHLORIDE 104 mmol/L (98-107); CREATININE 0.9 mg/dL (0.6-1.3); GLUCOSE 97 mg/dL (74-106); MAGNESIUM 1.7 mg/dL (1.8-2.4); PHOSPHORUS 3.2 mg/dL (2.5-4.9); POTASSIUM 3.6 mmol/L (3.5-5.1); SODIUM SERUM 138 mmol/L (136-145); TOTAL PROTEIN, SERUM 5.7 g/dL (6.4-8.2); UREA NITROGEN, BLOOD 19 mg/dL (7-18)
[2018-01-25 08:00] VITALS: BP 107/63
[2018-01-25 08:12] LABS: CHOLESTEROL 113 mg/dL (<200); HDL CHOLESTEROL 49 mg/dL (40-60); LDL 62 mg/dL (0-99); THYROID STIMULATING HORMONE 6.117 uIU/mL (0.358-3.74); TRIGLYCERIDES 31 mg/dL (30-150)
[2018-01-25] MEDS: IV D5/0.45 NACL 1,000 ML IV PRN ×2 (11:02→14:48)
[2018-01-25] MEDS: Magnesium 1GM/D5W 100ML PREMIX 100 ML IV SCH ×2 (11:31→12:51)
[2018-01-25 16:00] VITALS: BP 108/58
[2018-01-25] MEDS: PROSOURCE / PROSTAT (PYXIS) 30 ML UDC PO SCH (16:55)
[2018-01-25 20:00] VITALS: BP 98/56
[2018-01-25] MEDS: MUPIROCIN OINT 2% 22 GM TUBE SCH (23:21)
[2018-01-26] MEDS: IV D5/0.45 NACL 1,000 ML IV PRN ×2 (06:00→20:57)
[2018-01-26 06:29] LABS: BASOPHILS % (AUTO) 0.5 % (0.0-2.0); EOSINOPHILS % (AUTO) 5.9 % (0.0-6.0); HEMATOCRIT 34 % (39-51); HEMOGLOBIN 11.2 g/dL (13.5-17.5); LYMPHOCYTES # (AUTO) 2.9 /CMM (0.8-4.8); LYMPHOCYTES % (AUTO) 37.8 % (20.0-44.0); MEAN CORPUSCULAR HEMOGLOBIN 29 PG (26.0-33.0); MEAN CORPUSCULAR HGB CONC 33 g/dl (31.0-36.0); MEAN CORPUSCULAR VOLUME 89 fL (80-96); MONOCYTES % (AUTO) 12.3 % (2.0-12.0); NEUTROPHILS # (AUTO) 3.4 /CMM (1.8-8.9); NEUTROPHILS % (AUTO) 43.5 % (43.0-81.0); PLATELET COUNT (AUTO) 204 /CMM (150-450); RDW COEFFICIENT OF VARIATION 15.6 (11.5-15.0); RED BLOOD CELL COUNT(AUTO) 3.85 MIL/uL (4.5-6.0); WHITE BLOOD COUNT (AUTO) 7.7 K/uL (4.3-11.0)
[2018-01-26 07:00] LABS: ALANINE AMINOTRANSFERASE 24 U/L (12-78); ALBUMIN 2.5 g/dL (3.4-5.0); ALKALINE PHOSPHATASE 132 U/L (46-116); ASPARTATE AMINOTRANSFERASE 24 U/L (15-37); BILIRUBIN,TOTAL 0.4 mg/dL (0.2-1.0); CALCIUM, SERUM 8.5 mg/dL (8.5-10.1); CARBON DIOXIDE 30 mmol/L (21-32); CHLORIDE 105 mmol/L (98-107); CREATININE 0.9 mg/dL (0.6-1.3); GLUCOSE 98 mg/dL (74-106); PHOSPHORUS 2.9 mg/dL (2.5-4.9); POTASSIUM 3.9 mmol/L (3.5-5.1); SODIUM SERUM 137 mmol/L (136-145); TOTAL PROTEIN, SERUM 6.2 g/dL (6.4-8.2); UREA NITROGEN, BLOOD 18 mg/dL (7-18)
[2018-01-26 08:00] VITALS: BP 126/70
[2018-01-26] MEDS: MUPIROCIN OINT 2% 22 GM TUBE SCH ×2 (08:45→21:03)
[2018-01-26] MEDS: MULTIVITAMINS,THERAGRAN 1 UDTAB TABLET PO SCH (08:45)
[2018-01-26] MEDS: PROSOURCE / PROSTAT (PYXIS) 30 ML UDC PO SCH ×2 (08:45→17:10)
[2018-01-26 16:00] VITALS: BP 109/57
[2018-01-26 20:00] VITALS: BP 112/61
[2018-01-27 08:00] VITALS: BP 130/66
[2018-01-27] MEDS: MUPIROCIN OINT 2% 22 GM TUBE SCH ×2 (08:03→21:01)
[2018-01-27] MEDS: PROSOURCE / PROSTAT (PYXIS) 30 ML UDC PO SCH ×2 (08:03→17:29)
[2018-01-27] MEDS: MULTIVITAMINS,THERAGRAN 1 UDTAB TABLET PO SCH (08:03)
[2018-01-27 08:30] VITALS: BP 130/66
[2018-01-27] MEDS: IV D5/0.45 NACL 1,000 ML IV PRN (11:21)
[2018-01-27 15:56] VITALS: BP 142/76
[2018-01-27 20:00] VITALS: BP 131/67
[2018-01-27 20:28] VITALS: BP 131/67
[2018-01-28] MEDS: IV D5/0.45 NACL 1,000 ML IV PRN (02:04)
[2018-01-28 06:23] LABS: BASOPHILS % (AUTO) 0.5 % (0.0-2.0); EOSINOPHILS % (AUTO) 7.4 % (0.0-6.0); HEMATOCRIT 32 % (39-51); HEMOGLOBIN 10.6 g/dL (13.5-17.5); LYMPHOCYTES # (AUTO) 2.4 /CMM (0.8-4.8); MEAN CORPUSCULAR HEMOGLOBIN 29 PG (26.0-33.0); MEAN CORPUSCULAR HGB CONC 33 g/dl (31.0-36.0); MEAN CORPUSCULAR VOLUME 89 fL (80-96); MONOCYTES # (AUTO) 0.7 /CMM (0.1-1.30); MONOCYTES % (AUTO) 10.6 % (2.0-12.0); NEUTROPHILS # (AUTO) 3.2 /CMM (1.8-8.9); NEUTROPHILS % (AUTO) 46.5 % (43.0-81.0); PLATELET COUNT (AUTO) 198 /CMM (150-450); RDW COEFFICIENT OF VARIATION 15.5 (11.5-15.0); RED BLOOD CELL COUNT(AUTO) 3.59 MIL/uL (4.5-6.0); WHITE BLOOD COUNT (AUTO) 6.9 K/uL (4.3-11.0)
[2018-01-28 06:47] LABS: ALANINE AMINOTRANSFERASE 25 U/L (12-78); ALBUMIN 2.3 g/dL (3.4-5.0); ALKALINE PHOSPHATASE 119 U/L (46-116); ASPARTATE AMINOTRANSFERASE 26 U/L (15-37); BILIRUBIN,TOTAL 0.4 mg/dL (0.2-1.0); CALCIUM, SERUM 8.4 mg/dL (8.5-10.1); CARBON DIOXIDE 29 mmol/L (21-32); CHLORIDE 104 mmol/L (98-107); CREATININE 0.9 mg/dL (0.6-1.3); GLUCOSE 104 mg/dL (74-106); LIPASE 246 U/L (73-393); MAGNESIUM 1.8 mg/dL (1.8-2.4); PHOSPHORUS 3.2 mg/dL (2.5-4.9); POTASSIUM 3.7 mmol/L (3.5-5.1); SODIUM SERUM 136 mmol/L (136-145); TOTAL PROTEIN, SERUM 5.9 g/dL (6.4-8.2); UREA NITROGEN, BLOOD 17 mg/dL (7-18)
[2018-01-28] MEDS: MUPIROCIN OINT 2% 22 GM TUBE SCH (08:53)
[2018-01-28] MEDS: MULTIVITAMINS,THERAGRAN 1 UDTAB TABLET PO SCH (08:54)
[2018-01-28] MEDS: PROSOURCE / PROSTAT (PYXIS) 30 ML UDC PO SCH (08:55)
== END 2018-01-28 16:15 | DRG 73 ==
LOC: ER 16:00 → MED 19:46
PROVIDERS: ADMIT Internal Medicine; ATTEND Internal Medicine
DX: G90.8 Other disorders of autonomic nervous system (principal); E43 Unspecified severe protein-calorie malnutrition; D68.59 Other primary thrombophilia; G30.9 Alzheimer's disease, unspecified; F02.80 Dementia in other diseases classified elsewhere, unspecified severity, without behavioral disturbance, psychotic disturbance, mood disturbance, and anxiety; E03.9 Hypothyroidism, unspecified; D63.8 Anemia in other chronic diseases classified elsewhere; E78.5 Hyperlipidemia, unspecified; I10 Essential (primary) hypertension; E11.9 Type 2 diabetes mellitus without complications; R53.1 Weakness; Z68.23 Body mass index [BMI] 23.0-23.9, adult; L89.620 Pressure ulcer of left heel, unstageable; L98.8 Other specified disorders of the skin and subcutaneous tissue; D17.79 Benign lipomatous neoplasm of other sites
CPT/HCPCS: 36415; 80048-TC; 80053-TC; 80061-TC; 80076-TC; 81000-TC; 83690-TC; 83735-TC; 84100-TC; 84134-TC; 84443-TC; 84484-TC; 85025-TC; 87081-TC; 87086-TC; 92611-TC; A4606; J3475; J3490; Z7610

== ENCOUNTER 2018-08-20 02:31 | Emergency (ER) | payer MEDICARE, OTHER ==
[~2018-08-20] VITALS: Ht 180.3 cm; Wt 61.2 kg
[~2018-08-20 02:31] MED LIST changes: +ACET-868 PO; +BISA10SU8 RC; -CHOL50004 PO; +DOCU-141 PO; +HALO0.5T2 PO; -LACT1CAP89 PO; +LOSA50TA3 PO; +MAGN400O6 PO; -MELO-107 PO; -MEMA10TA PO; +MULT-447 PO; +NA P133E RC; -OLME20TA13 PO; -OXYC-128 PO; +RIVA10TA PO; -SIMV20TA6 PO; -SUCR1TAB PO; +SUCR1TAB31 PO
[2018-08-20 02:33] VITALS: BP 155/88
[2018-08-20] MEDS ORDERED: TDAP [DIPH/PERTUSSIS/TET] 0.5 ML VIAL IM ONE ×2 (03:00→03:01)
[2018-08-20] MEDS ORDERED: LIDOCAINE /MPF 1% VIAL 5 ML VIAL IJ ONE (03:00)
[2018-08-20] MEDS ORDERED: LIDOCAINE 1% INJ 50 ML MDV IJ ONE (03:11)
[2018-08-20] MEDS ORDERED: BACI/NEOM/POLY B OINT PKT 1 UDPKT PACKET TP ONE (05:00)
--- NOTE | 2018-08-20 05:20 | NUR ---
[facility] ETA 0620 TRIP NUMBER [id number]
[2018-09-28] MEDS ORDERED: NUT.237L45 PO (10:39)
[2018-09-28] MEDS ORDERED: CEPH-570 PO (10:39)
== END 2018-08-20 06:47 | disposition home or self-care (01) ==
LOC: ER 02:38
DX: S91.312A Laceration without foreign body, left foot, initial encounter (principal); G30.9 Alzheimer's disease, unspecified; F02.80 Dementia in other diseases classified elsewhere, unspecified severity, without behavioral disturbance, psychotic disturbance, mood disturbance, and anxiety; I10 Essential (primary) hypertension; E78.5 Hyperlipidemia, unspecified; E11.9 Type 2 diabetes mellitus without complications; Z98.890 Other specified postprocedural states; Z79.899 Other long term (current) drug therapy; X58.XXXA Exposure to other specified factors, initial encounter; Y93.89 Activity, other specified; Y92.89 Other specified places as the place of occurrence of the external cause; Y99.8 Other external cause status
CPT/HCPCS: 12002; 73620; 90471; 90715; 99283; A4606; A6402 ×2; J3490

== ENCOUNTER 2018-09-25 13:38 | Inpatient (IN) | payer MEDICARE, OTHER ==
[~2018-09-25] VITALS: Ht 188 cm; Wt 62.6 kg
--- NOTE | 2018-09-25 14:27 | NUR ---
DR COLBY AT BEDSIDE FOR EVAL.
--- NOTE | 2018-09-25 14:30 | NUR ---
IV LINE STARTED BLOOD DRAWN AND SENT TO LAB.
[2018-09-25 14:43] LABS: BASOPHILS # (AUTO) 0.1 /CMM (0.0-0.2); BASOPHILS % (AUTO) 0.8 % (0.0-2.0); EOSINOPHILS % (AUTO) 13.5 % (0.0-6.0); HEMATOCRIT 40 % (39-51); LYMPHOCYTES # (AUTO) 2.5 /CMM (0.8-4.8); LYMPHOCYTES % (AUTO) 28.7 % (20.0-44.0); MEAN CORPUSCULAR HGB CONC 33 g/dl (31.0-36.0); MEAN CORPUSCULAR VOLUME 90 fL (80-96); MONOCYTES % (AUTO) 11.1 % (2.0-12.0); NEUTROPHILS % (AUTO) 45.9 % (43.0-81.0); PLATELET COUNT (AUTO) 211 /CMM (150-450); RED BLOOD CELL COUNT(AUTO) 4.42 MIL/uL (4.5-6.0); WHITE BLOOD COUNT (AUTO) 8.7 K/uL (4.3-11.0)
--- NOTE | 2018-09-25 14:45 | NUR ---
RADIOLOGY AT BEDSIDE FOR CHEST XRAY.
[2018-09-25 14:48] LABS: CALCIUM, SERUM 8.4 mg/dL (8.5-10.1); CARBON DIOXIDE 27 mmol/L (21-32); CHLORIDE 107 mmol/L (98-107); CREATININE 1.3 mg/dL (0.6-1.3); GLUCOSE 91 mg/dL (74-106); POTASSIUM 4.1 mmol/L (3.5-5.1); SODIUM SERUM 139 mmol/L (136-145); UREA NITROGEN, BLOOD 37 mg/dL (7-18)
[2018-09-25 14:52] LABS: ALANINE AMINOTRANSFERASE 22 U/L (12-78); ALBUMIN 2.9 g/dL (3.4-5.0); ALKALINE PHOSPHATASE 102 U/L (46-116); ASPARTATE AMINOTRANSFERASE 23 U/L (15-37); BILIRUBIN,DIRECT 0.1 mg/dL (0.0-0.2); BILIRUBIN,TOTAL 0.2 mg/dL (0.2-1.0); TOTAL PROTEIN, SERUM 7.1 g/dL (6.4-8.2)
--- NOTE | 2018-09-25 15:04 | NUR ---
EPIC PAGED, SUPERVISOR COKE HANDLING.
[2018-09-25] MEDS ORDERED: CRAN450C PO (15:21)
[2018-09-25] MEDS ORDERED: MULT1TAB85 PO (15:21)
[2018-09-25] MEDS ORDERED: AMIN30LI2 PO (15:21)
[2018-09-25] MEDS ORDERED: FERR325T23 PO (15:21)
[2018-09-25 15:23] LABS: APPEARANCE,URINE Cloudy (CLEAR); BILIRUBIN,URINE Negative (NEGATIVE); BLOOD, URINE Trace-intact Ery/uL (NEGATIVE); COLOR,URINE Yellow (YELLOW); KETONES,URINE Negative (NEGATIVE); LEUKOCYTE ESTERASE ,URINE Large (NEGATIVE); NITRITE, URINE Positive (NEGATIVE); PH,URINE 8.5 (5.0-8.0); PROTEIN,URINE 100 mg/dl (NEGATIVE); UGLUCOSE Negative (NEGATIVE); UROBILINOGEN,URINE 0.2 EU/dL (0.2)
[2018-09-25 15:28] LABS: BACTERIA,URINE Moderate /HPF (None Seen); SQUAMOUS EPITHELIAL CELL,UR Few /HPF (None Seen); WBC,URINE 80-100 /HPF (0-3)
[2018-09-25] MEDS ORDERED: IV NS 0.9% 1,000 ML BAG IV ONE (15:30)
--- NOTE | 2018-09-25 15:39 | NUR ---
REPORT GIVEN TO THOMPSON. PT AWAITING TRANSFER TO FLOOR.
[2018-09-25] MEDS ORDERED: CEFTRIAXONE 1GM BAG (ER ONLY) 50 ML IV ONE (15:52)
[2018-09-25 16:00] VITALS: BP 128/61
[2018-09-25] MEDS ORDERED: CEFTRIAXONE 1GM BAG (ER ONLY) 1 GM/50 ML PIGGYBACK IV ONE (16:00)
--- NOTE | 2018-09-25 16:30 | NUR ---
MS engineer/conductor Notes Patient awake, resting in bed. Alert and oriented x1. Hard of hearing, frequent reorientation needed. No signs or symptoms of pain at this time. Respirations even and unlabored on room air, no acute distress noted. Peripheral IV to the right forearm 20 gauge, intact, patent and saline locked. Skin assessment completed, photos noted in chart. Updated patient on current plan of care and safety measures. Oriented patient and family to unit and room. Safety and fall precautions in place: bed in lowest and locked position, side rails up x2, bed alarm on, call light and personal possessions within reach. History provided per family, family at bedside. No personal belongings with patient at this time. On-call MD Dr. Menjivar paged for admission orders. Will continue to monitor and intervene as needed.
[2018-09-25] MEDS ORDERED: ONDANSETRON HCL/PF 4 MG/2 ML VIAL IVP PRN (17:00)
[2018-09-25] MEDS ORDERED: ZOLPIDEM TARTRATE 5 MG TABLET PO PRN (17:00)
[2018-09-25] MEDS ORDERED: INSULIN REGULAR, HUMAN 100 UNIT/ML 3 ML VIAL SQ PRN (17:00)
[2018-09-25] MEDS ORDERED: Z GUARD REMEDY 2 OZ OINT TP PRN (17:00)
[2018-09-25] MEDS ORDERED: MAG HYDROX/AL HYDROX/SIMETH 30 ML UDC PO PRN (17:00)
[2018-09-25] MEDS ORDERED: MAGNESIUM HYDROXIDE 30 ML UDC PO PRN (17:00)
[2018-09-25] MEDS ORDERED: ACETAMINOPHEN 325 MG TABLET PO PRN (17:00)
[2018-09-25] MEDS ORDERED: DEXTROSE 50%-WATER 50 ML DISP.SYRIN IV PRN (17:00)
[2018-09-25] MEDS: BLOOD SUGAR DIAGNOSTIC 1 EACH STRIP IN SCH (18:00)
--- NOTE | 2018-09-25 19:33 | NUR ---
MS RN Closing Notes No acute events since admission. Patient stable, vital signs stable. Will endorse to shift lab technician RN for continuity of care.
--- NOTE | 2018-09-25 19:34 | NUR ---
MS RN NOTES RECEIVED ON BED A/O X1-2,CONFUSED,WITH KNOWN HX OF DEMENTIA,ALZHEIMERS,NPO FOR NOW ORDERED 'TILL SEEN FOR ST EVALUATION.SALINE LOCK RFA INTACT AND PATENT.FALL PRECAUTION OBSERVED,BED ALARM TRIGGERED,BED ON LOWEST POSITION AND LOCKED.CALL LIGHT IN REACH,NEEDS ANTICIPATED.
[2018-09-25] MEDS: IV D5/0.45 NACL 1,000 ML IV PRN (19:41)
[2018-09-25 20:00] VITALS: BP 126/63
[2018-09-26] MEDS: BLOOD SUGAR DIAGNOSTIC 1 EACH STRIP IN SCH ×5 (00:11→22:23)
--- NOTE | 2018-09-26 00:11 | NUR ---
MS RN NOTES ACCU-CHECK BLOOD SUGAR CHECK 87,NO INSULIN COVERAGE.
--- NOTE | 2018-09-26 06:00 | NUR ---
MS RN NOTES ACC-CHECK BLOOD SUGAR CHECK 79,NO INSULIN COVERAGE.
--- NOTE | 2018-09-26 06:23 | NUR ---
MS RN NOTES REMAINS CONFUSED,A/O X1-2,REFUSED CARE AT TIMES,NO FALL,NO INJURY.BED ON LOWEST POSITION AND LOCKED,KEPT NPO TILL SEEN FOR ST EVAL,ASPIRATION PRECAUTION.IN NO ACUTE DISTRESS.WILL ENDORSE TO DAY NURSE FOR NEYDA.
[2018-09-26 06:31] LABS: BASOPHILS # (AUTO) 0.1 /CMM (0.0-0.2); BASOPHILS % (AUTO) 0.8 % (0.0-2.0); EOSINOPHILS % (AUTO) 17.5 % (0.0-6.0); HEMATOCRIT 34 % (39-51); HEMOGLOBIN 11.6 g/dL (13.5-17.5); LYMPHOCYTES # (AUTO) 2.4 /CMM (0.8-4.8); LYMPHOCYTES % (AUTO) 34.7 % (20.0-44.0); MEAN CORPUSCULAR HGB CONC 34 g/dl (31.0-36.0); MEAN CORPUSCULAR VOLUME 88 fL (80-96); MONOCYTES # (AUTO) 0.7 /CMM (0.1-1.30); MONOCYTES % (AUTO) 10.3 % (2.0-12.0); NEUTROPHILS # (AUTO) 2.6 /CMM (1.8-8.9); NEUTROPHILS % (AUTO) 36.7 % (43.0-81.0); PLATELET COUNT (AUTO) 201 /CMM (150-450); RED BLOOD CELL COUNT(AUTO) 3.91 MIL/uL (4.5-6.0)
[2018-09-26 06:52] LABS: CALCIUM, SERUM 8.2 mg/dL (8.5-10.1); CARBON DIOXIDE 27 mmol/L (21-32); CHLORIDE 107 mmol/L (98-107); CREATININE 1.1 mg/dL (0.6-1.3); GLUCOSE 84 mg/dL (74-106); PHOSPHORUS 3.2 mg/dL (2.5-4.9); POTASSIUM 3.8 mmol/L (3.5-5.1); SODIUM SERUM 139 mmol/L (136-145); UREA NITROGEN, BLOOD 29 mg/dL (7-18)
--- NOTE | 2018-09-26 07:30 | NUR ---
MS RN Opening Notes Patient asleep, resting in bed. Alert and oriented x1. Hard of hearing, frequent reorientation needed. No signs or symptoms of pain at this time. Respirations even and unlabored on room air, no acute distress noted. Peripheral IV to the right forearm 20 gauge, intact, patent and infusing fluids as ordered. Updated patient on current plan of care and safety measures. Safety and fall precautions in place: bed in lowest and locked position, side rails up x2, bed alarm on, call light and personal possessions within reach. History provided per family, family at bedside. NPO pending swallow evaluation. Sitter at bedside for safety. Will continue to monitor and intervene as needed.
[2018-09-26 08:00] VITALS: BP 116/63
[2018-09-26 09:00] VITALS: BP 116/63
[2018-09-26] MEDS ORDERED: BISACODYL SUPP (10 MG) 10 MG/SUPP.RECT SUPP.RECT RC PRN (11:00)
[2018-09-26] MEDS ORDERED: NA PHOS,M-B/NA PHOS,DI-BA 1 EA ENEMA RC PRN (11:00)
[2018-09-26] MEDS: PROSOURCE / PROSTAT (PYXIS) 30 ML UDC PO SCH ×2 (11:30→17:14)
[2018-09-26] MEDS: CEFTRIAXONE 1 G in IV D5W 50 ML IV SCH (13:24)
[2018-09-26] MEDS ORDERED: INSULIN REGULAR, HUMAN 100 UNIT/ML 3 ML VIAL SQ PRN (15:00)
[2018-09-26] MEDS ORDERED: DEXTROSE 50%-WATER 50 ML DISP.SYRIN IV PRN (15:00)
[2018-09-26 16:00] VITALS: BP 128/53
[2018-09-26] MEDS ORDERED: Medication Not On Formulary EA (Cranberry Fruit Concentrate (Cranberry) 450 MG) PO SCH (17:00)
[2018-09-26] MEDS: DOCUSATE SODIUM 100 MG CAPSULE PO SCH (17:00)
[2018-09-26] MEDS: FERROUS SULFATE (325 MG) 325 MG/TAB TABLET PO SCH (17:13)
[2018-09-26] MEDS: RIVAROXABAN 10 MG TABLET PO SCH (17:13)
[2018-09-26] MEDS: IV D5/0.45 NACL 1,000 ML IV PRN (17:14)
--- NOTE | 2018-09-26 19:33 | NUR ---
MS RN Closing Notes Patient awake, resting in bed. Alert and oriented x1. Hard of hearing, frequent reorientation needed. No signs or symptoms of pain at this time. Respirations even and unlabored on room air, no acute distress noted. Peripheral IV to the right forearm 20 gauge, intact, patent and infusing fluids as ordered. Updated patient on current plan of care and safety measures. Safety and fall precautions in place: bed in lowest and locked position, side rails up x2, bed alarm on, call light and personal possessions within reach. History provided per family. Sitter at bedside for safety. Will endorse to cage shift manager RN for continuity of care.
--- NOTE | 2018-09-26 19:50 | NUR ---
RN OPENING NOTE RECEIVED PATIENT AWAKE, BREATHING EVEN AND UNLABORED, ALL SAFETY MEASURES IN PLACED, ASPIRATION PRECAUTION MAINTAINED, PATIENT IS CONFUSED, WITH 1:1 SITTER AT BEDSIDE, WILL MONITOR ACCORDINGLY.
[2018-09-26 20:00] VITALS: BP 124/65
--- NOTE | 2018-09-26 20:00 | NUR ---
RN NOTES PATIENT APPEARS TO BE SO CONFUSED, ANXIOUS, RESTLESS AND TRYING TO PULL OUT PERIPHERAL IV LINE, INFORMED LAB COURIER ISABEL REDDY WITH ORDER TO GIVE SEROQUEL 25 MG PO ONCE. NOTED AND CARRIED OUT.
[2018-09-26 20:05] VITALS: BP 124/65
[2018-09-26] MEDS ORDERED: QUETIAPINE FUMARATE 25 MG TABLET PO ONE (20:30)
--- NOTE | 2018-09-26 23:00 | NUR ---
RN NOTES ABLE TO REST AND SLEEP COMFORTABLY, SITTER AT BEDSIDE. WILL CONTINUE TO MONITOR.
[2018-09-27 00:05] VITALS: BP 124/65
[2018-09-27] MEDS: IV D5/0.45 NACL 1,000 ML IV PRN ×2 (06:03→19:44)
[2018-09-27 06:35] LABS: BASOPHILS % (AUTO) 0.7 % (0.0-2.0); EOSINOPHILS % (AUTO) 17.6 % (0.0-6.0); HEMATOCRIT 36 % (39-51); HEMOGLOBIN 12.1 g/dL (13.5-17.5); LYMPHOCYTES # (AUTO) 2.7 /CMM (0.8-4.8); LYMPHOCYTES % (AUTO) 41.6 % (20.0-44.0); MEAN CORPUSCULAR HGB CONC 34 g/dl (31.0-36.0); MEAN CORPUSCULAR VOLUME 88 fL (80-96); MONOCYTES # (AUTO) 0.8 /CMM (0.1-1.30); MONOCYTES % (AUTO) 12.1 % (2.0-12.0); NEUTROPHILS # (AUTO) 1.8 /CMM (1.8-8.9); PLATELET COUNT (AUTO) 194 /CMM (150-450); RED BLOOD CELL COUNT(AUTO) 4.11 MIL/uL (4.5-6.0); WHITE BLOOD COUNT (AUTO) 6.6 K/uL (4.3-11.0)
--- NOTE | 2018-09-27 06:40 | NUR ---
RN NOTES ALL NEEDS ATTENDED AND MET, KEPT CLEAN DRY AND COMFORTABLE. SITTER AT BEDSIDE. WILL ENDORSE TO AM NURSE FOR CONTINUITY OF CARE.
[2018-09-27 06:49] LABS: CALCIUM, SERUM 8.3 mg/dL (8.5-10.1); CARBON DIOXIDE 26 mmol/L (21-32); CHLORIDE 105 mmol/L (98-107); CREATININE 1.1 mg/dL (0.6-1.3); GLUCOSE 86 mg/dL (74-106); POTASSIUM 3.7 mmol/L (3.5-5.1); SODIUM SERUM 137 mmol/L (136-145); UREA NITROGEN, BLOOD 27 mg/dL (7-18)
--- NOTE | 2018-09-27 07:24 | NUR ---
MS/RN OPENING NOTE PATIENT IN BED IN STABLE CONDITION. A/O X 1 WITH EPISODES OF CONFUSION. NO SIGNS OF ACUTE DISTRESS. NO COMPLAIN OF PAIN OR DISCOMFORT. ON CONTACT ISOLATION FOR POSITIVE MRSA NARES. HOB ELEVATED FOR ASPIRATION PRECAUTION. 1:1 SITTER AT BEDSIDE. ALL NEEDS ATTENDED TO. CALL LIGHT WITHIN REACH. WILL CONTINUE TO MONITOR TO ENSURE SAFETY.
--- NOTE | 2018-09-27 07:30 | NUR ---
WOUND CARE CONSULT WOUND CARE RECEIVED CONSULT FOR HEEL WOUND. WOUND CARE WILL DEFER CONSULT AND ALL TREATMENT PLANS TO PLASTIC SURGICAL TEAM INCLUDING DPM DR WALKER THE ARE CURRENTLY FOLLOWING THIS PATIENT. PATIENT WITH VOLODYMYR AT 15, ALL PRESSURE ULCER PREVENTION MEASURES ARE NOTED TO BE IN PLACE. WILL SEE PRN.
[2018-09-27 07:57] VITALS: BP 154/79
[2018-09-27] MEDS: BLOOD SUGAR DIAGNOSTIC 1 EACH STRIP IN SCH ×4 (08:15→22:29)
[2018-09-27] MEDS: PANTOPRAZOLE 40 MG TABLET.DR PO SCH (08:26)
[2018-09-27] MEDS: LOSARTAN POTASSIUM 50 MG TABLET PO SCH (08:26)
[2018-09-27] MEDS: DOCUSATE SODIUM 100 MG CAPSULE PO SCH ×2 (08:26→17:01)
[2018-09-27] MEDS: MULTIVIT W/MINERALS 1 TAB TABLET PO SCH (08:26)
[2018-09-27] MEDS ORDERED: MULTIVITAMIN/LUTEIN/MINERALS 1 TAB PO SCH (09:00)
[2018-09-27] MEDS: CEFTRIAXONE 1 G in IV D5W 50 ML IV SCH (10:50)
[2018-09-27] MEDS: MUPIROCIN OINT 2% 22 GM TUBE SCH ×2 (11:28→22:29)
[2018-09-27] MEDS: HYDROCODONE/APAP 5/325MG 1 EACH TABLET PO PRN ×2 (12:28→23:14)
[2018-09-27] MEDS: FERROUS SULFATE (325 MG) 325 MG/TAB TABLET PO SCH (17:01)
[2018-09-27] MEDS: RIVAROXABAN 10 MG TABLET PO SCH (17:01)
[2018-09-27] MEDS: PROSOURCE / PROSTAT (PYXIS) 30 ML UDC PO SCH (17:08)
[2018-09-27] MEDS: GLUCERNA SHAKE 237 ML CAN PO SCH (17:08)
--- NOTE | 2018-09-27 18:19 | NUR ---
MS/RN CLOSING NOTE PATIENT IN BED IN STABLE CONDITION. A/O X 2 WITH EPISODES OF CONFUSION AND FORGETFULNESS. NO SIGNS OF ACUTE DISTRESS. NO COMPLAIN OF PAIN OR DISCOMFORT. ON CONTACT ISOLATION FOR MRSA NARES. ALL NEEDS ATTENDED TO. 1:1 SITTER AT BEDSIDE. CALL LIGHT WITHIN REACH. WILL ENDORSE TO NEXT SHIFT FOR CONTINUITY OF CARE.
--- NOTE | 2018-09-27 19:35 | NUR ---
RN NOTES RECEIVED PATIENT IN BED IN STABLE CONDITION. ALERT / ORIENTED X 1 WITH EPISODES OF CONFUSION AND HARD OF HEARING, NO SIGNS OF ACUTE DISTRESS. NO COMPLAINTS OF PAIN OR DISCOMFORT. ON CONTACT ISOLATION FOR POSITIVE MRSA NARES. HOB ELEVATED FOR ASPIRATION PRECAUTION. 1:1 SITTER AT BEDSIDE. ALL SAFETY MEASURES IN PLACED, ALL NEEDS ATTENDED TO. CALL LIGHT WITHIN REACH. WILL CONTINUE TO MONITOR ACCORDINGLY.
[2018-09-27 20:00] VITALS: BP 112/61
--- NOTE | 2018-09-27 23:14 | NUR ---
RN NOTES NORCO GIVEN PER MD ORDER FOR PAIN, WILL CONTINUE TO MONITOR.
[2018-09-28] MEDS ORDERED: QUETIAPINE FUMARATE 25 MG TABLET PO PRN ×2 (01:00→01:30)
--- NOTE | 2018-09-28 01:24 | NUR ---
RN NOTES SEROQUEL GIVEN 25MG PO FOR MOOD CHANGES, ANXIETY AND JAYCEE. WILL MONITOR, SITTER AT BEDSIDE.
[2018-09-28] MEDS: BLOOD SUGAR DIAGNOSTIC 1 EACH STRIP IN SCH ×2 (06:17→11:59)
[2018-09-28] MEDS: IV D5/0.45 NACL 1,000 ML IV PRN (06:55)
--- NOTE | 2018-09-28 06:57 | NUR ---
RN NOTES ALL NEEDS ATTENDED AND MET, KEPT CLEAN DRY AND COMFORTABLE. WILL ENDORSE TO AM NURSE FOR CONTINUITY OF CARE.
--- NOTE | 2018-09-28 07:33 | NUR ---
MS/RN OPENING NOTES: RECEIVED PATIENT ON BED WITH HOB ELEVATED. A/O X 1, ABLE TO MAKE NEEDS KNOWN. RESPIRATION EVEN AND NON LABORED WITH NO ACUTE RESPIRATORY DISTRESS. DENIES PAIN AND DISCOMFORT. ABDOMEN SOFT AND NON DISTENDED WITH BM X4 WITH LAST SHIFT. PATIENT ON ISOLATION DUE TO MRSA NARES. IV ON LEFT FOREARM WITH NO SIGNS AND SYMPTOMS OF INFILTRATION. KEPT CALL LIGHT WITHIN REACH; WITH SITTER ON BEDSIDE TO PROVIDE SAFETY. WILL CONTINUE TO EVALUATE CARE.
[2018-09-28 08:00] VITALS: BP 110/64
[2018-09-28] MEDS: GLUCERNA SHAKE 237 ML CAN PO SCH ×2 (08:53→12:03)
[2018-09-28 08:54] VITALS: BP 110/64
[2018-09-28] MEDS: PANTOPRAZOLE 40 MG TABLET.DR PO SCH (08:54)
[2018-09-28] MEDS: LOSARTAN POTASSIUM 50 MG TABLET PO SCH (08:54)
[2018-09-28] MEDS: HYDROCODONE/APAP 5/325MG 1 EACH TABLET PO PRN (08:54)
[2018-09-28] MEDS: MULTIVIT W/MINERALS 1 TAB TABLET PO SCH (08:54)
[2018-09-28] MEDS: MUPIROCIN OINT 2% 22 GM TUBE SCH (08:56)
[2018-09-28] MEDS: DOCUSATE SODIUM 100 MG CAPSULE PO SCH (08:57)
[2018-09-28] MEDS ORDERED: NUT.237L45 PO (10:39)
[2018-09-28] MEDS ORDERED: CEPH-570 PO (10:39)
[2018-09-28] MEDS: CEFTRIAXONE 1 G in IV D5W 50 ML IV SCH (11:48)
--- NOTE | 2018-09-28 14:00 | NUR ---
MS/POT FEEDER PATIENT DISCHARGE TO [facility] IN STABLE CONDITION. A/O X 1 WITH EPISODES OF FORGETFULNESS AND CONFUSION. NO SIGNS OF ACUTE DISTRESS. NO COMPLAIN OF PAIN OR DISCOMFORT. DISCHARGE EDUCATION PROVIDED, UNABLE TO COMPREHEND. REPORT GIVEN TO BISMARK WILL FROM [facility]. NAME BAND AND IV LINE REMOVED. RESPONSIBLE CONSTITUTION PARTY CEDRICK DAUGHTER NOTIFIED. ALL NEEDS ATTENDED TO. LEFT IN STABLE CONDITION VIA GURNEY ACCOMPANIED BY 2 GAUGER CHIEF DELIVERY.
== END 2018-09-28 14:00 | DRG 73 ==
LOC: ER 13:40 → MED 15:56
PROVIDERS: ADMIT Student in an Organized Health Care Education/Training Program; ATTEND Nurse Practitioner Acute Care
DX: G90.8 Other disorders of autonomic nervous system (principal); E43 Unspecified severe protein-calorie malnutrition; N17.0 Acute kidney failure with tubular necrosis; N39.0 Urinary tract infection, site not specified; D68.59 Other primary thrombophilia; E87.2 Acidosis; G93.40 Encephalopathy, unspecified; Z68.1 Body mass index [BMI] 19.9 or less, adult; R62.7 Adult failure to thrive; E86.0 Dehydration; E03.9 Hypothyroidism, unspecified; E78.5 Hyperlipidemia, unspecified; G30.9 Alzheimer's disease, unspecified; F02.80 Dementia in other diseases classified elsewhere, unspecified severity, without behavioral disturbance, psychotic disturbance, mood disturbance, and anxiety; Z96.659 Presence of unspecified artificial knee joint; D63.8 Anemia in other chronic diseases classified elsewhere; D69.2 Other nonthrombocytopenic purpura; I10 Essential (primary) hypertension; L84 Corns and callosities; R53.1 Weakness; E11.9 Type 2 diabetes mellitus without complications; E88.09 Other disorders of plasma-protein metabolism, not elsewhere classified; E11.51 Type 2 diabetes mellitus with diabetic peripheral angiopathy without gangrene; B96.4 Proteus (mirabilis) (morganii) as the cause of diseases classified elsewhere; L98.8 Other specified disorders of the skin and subcutaneous tissue; S70.212A Abrasion, left hip, initial encounter; X58.XXXA Exposure to other specified factors, initial encounter; Y93.9 Activity, unspecified; Y92.129 Unspecified place in nursing home as the place of occurrence of the external cause
CPT/HCPCS: 36415; 71045-TC; 80048-TC; 80076-TC; 81000-TC; 82962-TC; 83605-TC; 83735-TC; 84100-TC; 84484-TC; 85025-TC; 85730-TC; 87040-TC; 87081-TC; 87086-TC; 87186-TC; 92611-TC; G0378; J0696; J1815; J3490; J7030; J7060

== ENCOUNTER 2019-01-04 21:13 | Inpatient (IN) | payer MEDICARE, OTHER ==
[~2019-01-04] VITALS: Ht 188 cm; Wt 54.0 kg
[~2019-01-04 21:13] MED LIST changes: +AMIN30LI2 PO; +BISA10SU11 RC; -BISA10SU8 RC; +CEPH-570 PO; +CRAN450C PO; +FERR325T23 PO; -HALO0.5T2 PO; +MULT1TAB85 PO; +NUT.237L45 PO; -SUCR1TAB31 PO
--- NOTE | 2019-01-04 21:24 | NUR ---
MARYJANE LAWSON FROM [facility]. AAOX1. BREATHING EVEN AND UNLABORED. BED BOUND. BROUGHT IN FOR ALOC AAOX1. BASELINE AAOX1. PT IS RESPONSIVE TO LOUD VERBAL AND TACTILE STIMULI. MUMBLES WORDS. NOTED GENERALIZED WEAKNESS. TO ER BED 10. MD AT BEDSIDE. AWATING FOR ORDES.
[2019-01-04] MEDS ORDERED: IV NS 0.9% 1,000 ML BAG IV ONE ×2 (21:30→23:30)
--- NOTE | 2019-01-04 21:39 | NUR ---
EKG AT BEDSIDE
--- NOTE | 2019-01-04 21:45 | NUR ---
LAB AT BEDSIDE
[2019-01-04 21:53] LABS: BASOPHILS % (AUTO) 0.5 % (0.0-2.0); EOSINOPHILS % (AUTO) 3.6 % (0.0-6.0); HEMATOCRIT 38 % (39-51); HEMOGLOBIN 12.4 g/dL (13.5-17.5); LYMPHOCYTES # (AUTO) 2.3 /CMM (0.8-4.8); LYMPHOCYTES % (AUTO) 28.3 % (20.0-44.0); MEAN CORPUSCULAR HGB CONC 32 g/dl (31.0-36.0); MEAN CORPUSCULAR VOLUME 93 fL (80-96); MONOCYTES # (AUTO) 0.8 /CMM (0.1-1.30); MONOCYTES % (AUTO) 9.4 % (2.0-12.0); NEUTROPHILS # (AUTO) 4.7 /CMM (1.8-8.9); NEUTROPHILS % (AUTO) 58.2 % (43.0-81.0); PLATELET COUNT (AUTO) 190 /CMM (150-450); RED BLOOD CELL COUNT(AUTO) 4.11 MIL/uL (4.5-6.0); WHITE BLOOD COUNT (AUTO) 8.2 K/uL (4.3-11.0)
--- NOTE | 2019-01-04 22:00 | NUR ---
CEDRICK [place] [phone] DAUGHTER.
--- NOTE | 2019-01-04 22:14 | NUR ---
PT WHEELED TO CT ON [facility]
[2019-01-04 22:24] LABS: APPEARANCE,URINE Cloudy (CLEAR); BILIRUBIN,URINE Negative (NEGATIVE); BLOOD, URINE Moderate Ery/uL (NEGATIVE); COLOR,URINE Yellow (YELLOW); KETONES,URINE Negative (NEGATIVE); LEUKOCYTE ESTERASE ,URINE Moderate (NEGATIVE); NITRITE, URINE Positive (NEGATIVE); PH,URINE 8.5 (5.0-8.0); PROTEIN,URINE 100 mg/dl (NEGATIVE); UGLUCOSE Negative (NEGATIVE); UROBILINOGEN,URINE 0.2 EU/dL (0.2)
[2019-01-04] MEDS ORDERED: CEFTRIAXONE 1GM BAG (ER ONLY) 50 ML IV ONE (22:50)
[2019-01-04 22:52] LABS: ALANINE AMINOTRANSFERASE 33 U/L (12-78); ALBUMIN 3.1 g/dL (3.4-5.0); ALKALINE PHOSPHATASE 127 U/L (46-116); ASPARTATE AMINOTRANSFERASE 27 U/L (15-37); BILIRUBIN,TOTAL 0.4 mg/dL (0.2-1.0); CALCIUM, SERUM 9.1 mg/dL (8.5-10.1); CARBON DIOXIDE 22 mmol/L (21-32); CREATININE 2.2 mg/dL (0.6-1.3); GLUCOSE 110 mg/dL (74-106); LIPASE 133 U/L (73-393); TOTAL PROTEIN, SERUM 7.5 g/dL (6.4-8.2); UREA NITROGEN, BLOOD 67 mg/dL (7-18)
[2019-01-04] MEDS ORDERED: CEFTRIAXONE 1GM BAG (ER ONLY) 1 GM/50 ML PIGGYBACK IV ONE (23:00)
[2019-01-04 23:10] LABS: BILIRUBIN,DIRECT 0.1 mg/dL (0.0-0.2); CHLORIDE 123 mmol/L (98-107); POTASSIUM 4.4 mmol/L (3.5-5.1)
[2019-01-04 23:12] LABS: SODIUM SERUM 160 mmol/L (136-145)
--- NOTE | 2019-01-04 23:22 | NUR ---
CALLED LULY TO HAVE IMAGES READ
[2019-01-04 23:31] LABS: BACTERIA,URINE Many /HPF (None Seen); RBC,URINE 21-50 /HPF (0-2); SQUAMOUS EPITHELIAL CELL,UR Few /HPF (None Seen); TRIPLE PHOSPHATE CRYSTAL,UR Many /HPF (None Seen); WBC,URINE 81-100 /HPF (0-3)
[2019-01-05] VITALS (7 sets, daily range): BP systolic 96–120; BP diastolic 55–98
[2019-01-05] MEDS ORDERED: IV NS 0.9% 1,000 ML IV PRN (01:04)
--- NOTE | 2019-01-05 01:22 | NUR ---
REPORT GIVEN TO NICOLETTE SEGURA FOR NEYDA. PT GOING TO TELE [phone]
[2019-01-05] MEDS ORDERED: INSULIN REGULAR, HUMAN 100 UNIT/ML 3 ML VIAL SQ PRN (01:30)
[2019-01-05] MEDS ORDERED: MAGNESIUM HYDROXIDE 30 ML UDC PO PRN ×2 (01:30)
[2019-01-05] MEDS ORDERED: ONDANSETRON HCL/PF 4 MG/2 ML VIAL IVP PRN (01:30)
[2019-01-05] MEDS ORDERED: MAG HYDROX/AL HYDROX/SIMETH 30 ML UDC PO PRN (01:30)
[2019-01-05] MEDS ORDERED: Z GUARD REMEDY 2 OZ OINT TP PRN (01:30)
[2019-01-05] MEDS ORDERED: BISACODYL SUPP (10 MG) 10 MG/SUPP.RECT SUPP.RECT RC PRN (01:30)
[2019-01-05] MEDS ORDERED: ACETAMINOPHEN 650 MG/SUPP.RECT RC PRN (01:30)
[2019-01-05] MEDS ORDERED: DEXTROSE 50%-WATER 50 ML DISP.SYRIN IV PRN (01:30)
[2019-01-05] MEDS ORDERED: ACETAMINOPHEN 325 MG TABLET PO PRN (01:30)
[2019-01-05] MEDS ORDERED: LEVOFLOXACIN 250 MG /D5W 50 ML 250 MG in PREMIX 1 EA IV SCH (01:30)
--- NOTE | 2019-01-05 02:20 | NUR ---
PT TRANSPORTED TO UNIT ON GURNEY WITH EMT AND RN AT BEDSIDE W/ ACLS PROTOCOL. NAD NOTED DURING TRANSPORT.
--- NOTE | 2019-01-05 02:30 | NUR ---
MS DIRECTOR STRATEGY NOTES RECEIVED FROM ER THIS 88 Y.O. MALE,A/O X1,CONFUSED [facility] BEING LETHARGIC THAN USUAL,WITH DIAGNOSIS OF UTI AND DEHYDRATION.WITH SALINE LOCK FROM SNF ON RIGHT FOREARM INTACT AND PATENT.NOTED BROWN SKIN DISCOLORATION OB BILATERAL LOWER EXTREMITIES,SLIGHT REDNESS ON SACRAL AREA.PER FACILITY,PATIENT IS BEDBOUND.WITH MECHANICAL SOFT DIET AT THE FACILITY.NPO FOR NOW ORDERED.WILL CONTINUE TO MONITOR STATUS.
[2019-01-05] MEDS ORDERED: LEVOFLOXACIN 250 MG /D5W 50 ML 50 ML IV ONE (02:43)
--- NOTE | 2019-01-05 03:00 | NUR ---
MS RN NOTES STARTED ON IVF NS AT 100ML/HR RATE,INFUSING VIA IV PUMP
--- NOTE | 2019-01-05 03:00 | NUR ---
MS RN NOTES STARTED ON LEVAQUIN 250MG IVPB ORDERED.
[2019-01-05] MEDS: BLOOD SUGAR DIAGNOSTIC 1 EACH STRIP IN SCH ×4 (06:07→21:31)
--- NOTE | 2019-01-05 06:19 | NUR ---
WINDOWS SOFTWARE ENGINEER NOTES ACCU-CHECK BLOOD SUGAR CHECK 86,NO INSULIN COVERAGE.
--- NOTE | 2019-01-05 06:37 | NUR ---
MS RN NOTES SLEPT WELL,NO SOB,AFEBRILE.IN NO ACUTE DISTRESS.WILL CONTINUE TO MONITOR STATUS.
[2019-01-05 06:52] LABS: BASOPHILS % (AUTO) 0.5 % (0.0-2.0); CALCIUM, SERUM 8.3 mg/dL (8.5-10.1); CARBON DIOXIDE 22 mmol/L (21-32); CREATININE 1.7 mg/dL (0.6-1.3); EOSINOPHILS % (AUTO) 4.9 % (0.0-6.0); GLUCOSE 101 mg/dL (74-106); HEMATOCRIT 31 % (39-51); LYMPHOCYTES % (AUTO) 35.1 % (20.0-44.0); MEAN CORPUSCULAR HGB CONC 33 g/dl (31.0-36.0); MEAN CORPUSCULAR VOLUME 93 fL (80-96); MONOCYTES # (AUTO) 0.6 /CMM (0.1-1.30); MONOCYTES % (AUTO) 10.1 % (2.0-12.0); NEUTROPHILS # (AUTO) 2.9 /CMM (1.8-8.9); NEUTROPHILS % (AUTO) 49.4 % (43.0-81.0); PLATELET COUNT (AUTO) 137 /CMM (150-450); POTASSIUM 3.9 mmol/L (3.5-5.1); RED BLOOD CELL COUNT(AUTO) 3.32 MIL/uL (4.5-6.0); UREA NITROGEN, BLOOD 55 mg/dL (7-18); WHITE BLOOD COUNT (AUTO) 5.8 K/uL (4.3-11.0)
[2019-01-05 07:04] LABS: ALANINE AMINOTRANSFERASE 25 U/L (12-78); ALBUMIN 2.3 g/dL (3.4-5.0); ALKALINE PHOSPHATASE 97 U/L (46-116); ASPARTATE AMINOTRANSFERASE 21 U/L (15-37); BILIRUBIN,TOTAL 0.3 mg/dL (0.2-1.0); MAGNESIUM 2.4 mg/dL (1.8-2.4); PHOSPHORUS 3.4 mg/dL (2.5-4.9); TOTAL PROTEIN, SERUM 5.8 g/dL (6.4-8.2)
[2019-01-05 07:05] LABS: CHOLESTEROL 110 mg/dL (<200); HDL CHOLESTEROL 44 mg/dL (40-60); LDL 59 mg/dL (0-99); TRIGLYCERIDES 41 mg/dL (30-150)
[2019-01-05] MEDS ORDERED: PANTOPRAZOLE 40 MG VIAL IV SCH (07:30)
[2019-01-05 07:53] LABS: CHLORIDE 128 mmol/L (98-107); SODIUM SERUM 163 mmol/L (136-145)
[2019-01-05] MEDS: GLUCERNA SHAKE 237 ML CAN PO SCH ×3 (08:00→18:12)
--- NOTE | 2019-01-05 08:00 | NUR ---
MS RN NOTES LAB CALLED WITH [facility] [address] [facility] [address] STUART MADE AWARE ORDERS TO CONTINUE MONITORING. ALSO INFORMED DR. PATIENT IS ON IV NORMAL SALINE. CONTINUE MONITORING.
--- NOTE | 2019-01-05 08:00 | NUR ---
BEHAVIORAL HEALTH TECHNICIAN NOTES PATIENT IN BED ALERT, ORIENTED X1. RESTING COMFORTABLE. PATIENT NPO DUE TO RISK FOR ASPIRATION. PERIPHERAL IV INTACT PATENT. BED IN LOW LOCKED POSITION. CALL LIGHT WITHIN REACH. WILL CONTINUE TO MONITOR.
[2019-01-05] MEDS ORDERED: LOSARTAN POTASSIUM 50 MG TABLET PO SCH (09:00)
[2019-01-05] MEDS: DOCUSATE SODIUM 100 MG CAPSULE PO SCH ×2 (09:00→17:09)
[2019-01-05] MEDS ORDERED: DOCUSATE SODIUM 100 MG CAPSULE PO SCH (09:00)
[2019-01-05] MEDS: IV 1/2NS 1000 ML 1,000 ML IV PRN ×2 (10:30→18:33)
--- NOTE | 2019-01-05 12:40 | NUR ---
RN NOTES PATIENT SEEN AND EVALUATED BY DR. STUART ORDERS TO START PUREED DIET. NOTED AND CARRIED OUT.
[2019-01-05] MEDS: MULTIVITAMIN/LUTEIN/MINERALS 1 TAB PO SCH (17:09)
[2019-01-05] MEDS: FERROUS SULFATE (325 MG) 325 MG/TAB TABLET PO SCH (17:09)
[2019-01-05] MEDS: RIVAROXABAN 10 MG TABLET PO SCH (17:10)
[2019-01-05] MEDS ORDERED: CEFEPIME 1 GM in IV D5W 50 ML IV SCH (18:00)
--- NOTE | 2019-01-05 18:49 | NUR ---
MS RN NOTES PATIENT IN BED SLEEPING. ALL DUE MEDICATIONS ADMINISTERED. ALL NEEDS MET. NO ACUTE CHANGES NOTED DURING SHIFT. WILL ENDORSE CARE TO PM SHIFT.
--- NOTE | 2019-01-05 19:00 | NUR ---
RN medsurwilliam opening notes Received Pt from morning nurse. Pt is alert and oriented x1. Pt is sitting in bed comfortably watching TV. Respiration is normal. No SOB. No nausea or vomiting. No S/S of distress noted. IV sites on RFA #22g is intact, patent and infusing well 0.45% NS at 125 ml/hr. Safety precautions is maintained. Bed at low position, brakes on, side rails upX2 and call light is within reach. Will continue to monitor.
[2019-01-05] MEDS ORDERED: CEFEPIME 2 GM in IV D5W 100 ML IV ONE (20:00)
[2019-01-05] MEDS: FAMOTIDINE/PF INJ 20 MG/2 ML VIAL IV SCH (21:18)
[2019-01-06 06:29] LABS: BASOPHILS % (AUTO) 0.3 % (0.0-2.0); EOSINOPHILS % (AUTO) 3.9 % (0.0-6.0); HEMATOCRIT 28 % (39-51); HEMOGLOBIN 9.3 g/dL (13.5-17.5); LYMPHOCYTES # (AUTO) 1.4 /CMM (0.8-4.8); MEAN CORPUSCULAR HGB CONC 33 g/dl (31.0-36.0); MEAN CORPUSCULAR VOLUME 93 fL (80-96); MONOCYTES # (AUTO) 0.5 /CMM (0.1-1.30); MONOCYTES % (AUTO) 7.6 % (2.0-12.0); NEUTROPHILS # (AUTO) 4.6 /CMM (1.8-8.9); NEUTROPHILS % (AUTO) 67.2 % (43.0-81.0); PLATELET COUNT (AUTO) 121 /CMM (150-450); RED BLOOD CELL COUNT(AUTO) 3.03 MIL/uL (4.5-6.0); WHITE BLOOD COUNT (AUTO) 6.8 K/uL (4.3-11.0)
[2019-01-06] MEDS: BLOOD SUGAR DIAGNOSTIC 1 EACH STRIP IN SCH ×4 (06:30→23:25)
--- NOTE | 2019-01-06 06:46 | NUR ---
RN medsurg notes Pt's blood glucose was 59. [place] juice with sugar and 2 vanilla pudding with sugar given to the Pt. Pt's is awake and able to eat well. Will recheck the blood glucose again in 15 min.
[2019-01-06 06:48] LABS: CREATINE KINASE, TOTAL 33 U/L (39-308)
[2019-01-06 07:10] LABS: ALANINE AMINOTRANSFERASE 38 U/L (12-78); ALBUMIN 2.2 g/dL (3.4-5.0); ALKALINE PHOSPHATASE 97 U/L (46-116); ASPARTATE AMINOTRANSFERASE 35 U/L (15-37); BILIRUBIN,TOTAL 0.3 mg/dL (0.2-1.0); CALCIUM, SERUM 8.2 mg/dL (8.5-10.1); CARBON DIOXIDE 22 mmol/L (21-32); CHLORIDE 123 mmol/L (98-107); CREATININE 1.4 mg/dL (0.6-1.3); GLUCOSE 77 mg/dL (74-106); PHOSPHORUS 2.9 mg/dL (2.5-4.9); POTASSIUM 3.8 mmol/L (3.5-5.1); SODIUM SERUM 155 mmol/L (136-145); TOTAL PROTEIN, SERUM 5.5 g/dL (6.4-8.2); UREA NITROGEN, BLOOD 43 mg/dL (7-18)
--- NOTE | 2019-01-06 07:12 | NUR ---
RN medr notes Pt's blood glucose is 97. Will continue to monitor.
--- NOTE | 2019-01-06 07:30 | NUR ---
RN medsurg closing notes Pt is sitting in bed comfortably watching TV. Pt is alert and oriented X1. Respiration is normal. No SOB. No nausea or vomiting. IV sites on RFA is intact, patent and infusing well. Routine meds have been given and all needs met. Skin care provided. Safety precautions is maintained. Bed at low position and call light is within reach. Will endorse to morning nurse for NEYDA.
[2019-01-06 08:00] VITALS: BP 121/57
--- NOTE | 2019-01-06 08:11 | NUR ---
MS RN OPENING NOTES Received Patient awake and resting in bed. A/O x 1. VS stable with no acute distress. Breathing even and unlabored on room air with no respiratory distress, SPO2 100%. Denies, nor signs and symptoms of pain noted. 22g PIV on RFA clean, dry, intact and flushing well with IVF 1/2 NS running at 125ml/hr. Safety precautions in place. Bed locked and set to lowest position with side rails x 2 up. All needs rendered at this time. Will continue to monitor.
[2019-01-06] MEDS: DOCUSATE SODIUM 100 MG CAPSULE PO SCH ×2 (08:56→16:46)
[2019-01-06] MEDS: FAMOTIDINE/PF INJ 20 MG/2 ML VIAL IV SCH ×2 (08:56→20:18)
[2019-01-06] MEDS: GLUCERNA SHAKE 237 ML CAN PO SCH ×3 (08:56→16:46)
[2019-01-06] MEDS: IV 1/2NS 1000 ML 1,000 ML IV PRN ×2 (10:42→20:15)
[2019-01-06] MEDS ORDERED: HYDROCODONE/APAP 10/325MG 1 EA TABLET PO PRN (11:00)
[2019-01-06] MEDS ORDERED: Z GUARD REMEDY 2 OZ OINT TP PRN (11:00)
[2019-01-06 16:00] VITALS: BP 106/87
[2019-01-06] MEDS: MULTIVITAMIN/LUTEIN/MINERALS 1 TAB PO SCH (16:45)
[2019-01-06] MEDS: RIVAROXABAN 10 MG TABLET PO SCH (16:50)
[2019-01-06] MEDS: FERROUS SULFATE (325 MG) 325 MG/TAB TABLET PO SCH (17:02)
--- NOTE | 2019-01-06 19:38 | NUR ---
MS RN CLOSING NOTES Patient awake and resting in bed. A/O x 1. VS stable with no acute distress. Breathing even and unlabored on room air with no respiratory distress, SPO2 100%. Denies, nor signs and symptoms of pain noted. 22g PIV on RFA clean, dry, intact and flushing well with IVF 1/2 NS running at 125ml/hr. Safety precautions in place. Bed locked and set to lowest position with side rails x 2 up. All needs rendered at this time. Will endorse plan of care to oncoming shift.
--- NOTE | 2019-01-06 19:55 | NUR ---
MS RN NOTES RECEIVED PATIENT AWAKE IN BED WITH NO DISTRESS NOTED. CALL LIGHT WITHIN REACH. PATIENT MUMBLING TO SELF, NO C/O PAIN OR DISCOMFORT. PERIPHERAL LINE INTACT AND PATENT. BED IN LOW LOCK SETTING. BED ALARM ON AND FUNCTIONING PROPERLY. ALL BELONGINGS KEPT NEAR BEDSIDE. WILL CONTINUE TO MONITOR.
[2019-01-06 20:00] VITALS: BP 122/75
[2019-01-06] MEDS ORDERED: CEFEPIME 1 GM in IV D5W 50 ML IV SCH (20:00)
--- NOTE | 2019-01-06 23:45 | NUR ---
RN OPEN NOTES RECEIVED PATIENT AWAKE IN BED. A/OX1. NO SIGNS OF DISTRESS OR DISCOMFORT. BREATHING EVEN AND UNLABORED. IV ACCESS IN RFA WITH 1/2 NS INFUSING, PATENT AND INTACT, NO SIGNS OF REDNESS OR INFILTRATION. BED IN LOW LOCKED POSITION WITH SIDE RAILS X3. CALL LIGHT WITHIN REACH. WILL CONTINUE TO MONITOR.
[2019-01-07] MEDS: IV 1/2NS 1000 ML 1,000 ML IV PRN (06:24)
[2019-01-07] MEDS: BLOOD SUGAR DIAGNOSTIC 1 EACH STRIP IN SCH ×4 (06:33→22:42)
[2019-01-07 06:40] LABS: BASOPHILS % (AUTO) 0.2 % (0.0-2.0); EOSINOPHILS % (AUTO) 2.5 % (0.0-6.0); HEMATOCRIT 28 % (39-51); HEMOGLOBIN 9.2 g/dL (13.5-17.5); LYMPHOCYTES # (AUTO) 1.4 /CMM (0.8-4.8); LYMPHOCYTES % (AUTO) 18.2 % (20.0-44.0); MEAN CORPUSCULAR HGB CONC 33 g/dl (31.0-36.0); MEAN CORPUSCULAR VOLUME 92 fL (80-96); MONOCYTES # (AUTO) 0.4 /CMM (0.1-1.30); MONOCYTES % (AUTO) 5.3 % (2.0-12.0); NEUTROPHILS # (AUTO) 5.5 /CMM (1.8-8.9); NEUTROPHILS % (AUTO) 73.8 % (43.0-81.0); PLATELET COUNT (AUTO) 121 /CMM (150-450); RED BLOOD CELL COUNT(AUTO) 3.05 MIL/uL (4.5-6.0); WHITE BLOOD COUNT (AUTO) 7.5 K/uL (4.3-11.0)
[2019-01-07 06:43] LABS: CALCIUM, SERUM 7.8 mg/dL (8.5-10.1); CARBON DIOXIDE 18 mmol/L (21-32); CHLORIDE 118 mmol/L (98-107); CREATININE 1.2 mg/dL (0.6-1.3); GLUCOSE 74 mg/dL (74-106); MAGNESIUM 1.7 mg/dL (1.8-2.4); PHOSPHORUS 2.3 mg/dL (2.5-4.9); POTASSIUM 3.4 mmol/L (3.5-5.1); SODIUM SERUM 150 mmol/L (136-145); UREA NITROGEN, BLOOD 33 mg/dL (7-18)
--- NOTE | 2019-01-07 07:05 | NUR ---
RN CLOSING NOTES PATIENT RESTING IN BED, EASILY AROUSABLE. A/OX1. NO SIGNS OF DISTRESS OR DISCOMFORT. BREATHING EVEN AND UNLABORED. IV ACCESS IN RFA WITH 1/2 NS INFUSING, PATENT AND INTACT, NO SIGNS OF REDNESS OR INFILTRATION. ALL NEEDS MET. NO SIGNIFICANT CHANGES THROUGH THE NIGHT. BED IN LOW LOCKED POSITION WITH SIDE RAILS X3. CALL LIGHT WITHIN REACH. WILL ENDORSE TO AM SHIFT FOR NEYDA.
--- NOTE | 2019-01-07 07:57 | NUR ---
MS RN OPENING NOTES Received Patient asleep and resting in bed. A/O x 1. VS stable with no acute distress. Breathing even and unlabored on room air with no respiratory distress. Denies pain. No signs and symptoms of pain noted. 22g PIV on RFA clean, dry, intact and flushing well with IVF 1/2 NS running at 125ml/hr. Isolation precautions in place. Safety precautions in place. Bed locked and set to lowest position with side rails x 2 up. All needs rendered at this time. Will continue to monitor.
[2019-01-07 08:00] VITALS: BP 92/51
[2019-01-07 09:10] LABS: *SPE ALBUMIN 2.4 g/dL (2.9-4.4); *SPE ALPHA-1-GLOBULIN 0.3 g/dL (0.0-0.4); *SPE ALPHA-2-GLOBULIN 0.5 g/dL (0.4-1.0); *SPE BETA GLOBULIN 0.7 g/dL (0.7-1.3); *SPE GLOBULIN, TOTAL 2.5 g/dL (2.2-3.9); *SPE M-SPIKE Not Observed g/dL (Not Observed); *SPEGAMMA GLOBULIN 0.9 g/dL (0.4-1.8)
[2019-01-07] MEDS: GLUCERNA SHAKE 237 ML CAN PO SCH ×3 (09:48→16:20)
[2019-01-07] MEDS: DOCUSATE SODIUM 100 MG CAPSULE PO SCH ×2 (09:48→16:19)
[2019-01-07] MEDS: FAMOTIDINE/PF INJ 20 MG/2 ML VIAL IV SCH ×2 (09:48→21:25)
[2019-01-07] MEDS ORDERED: POTASSIUM CHLORIDE 20 MEQ POWDER PACKET PO SCH (12:00)
[2019-01-07] MEDS: Magnesium 1GM/D5W 100ML PREMIX 100 ML IV SCH ×2 (12:17→13:53)
[2019-01-07] MEDS ORDERED: NEUTRA PHOS 1 POWD.PACKET NG ONE (13:00)
[2019-01-07 14:09] LABS: PTH, INTACT 44 pg/mL (15-65)
[2019-01-07 16:00] VITALS: BP 128/51
[2019-01-07] MEDS: MULTIVITAMIN/LUTEIN/MINERALS 1 TAB PO SCH (16:19)
[2019-01-07] MEDS: RIVAROXABAN 10 MG TABLET PO SCH (16:21)
[2019-01-07] MEDS: FERROUS SULFATE (325 MG) 325 MG/TAB TABLET PO SCH (18:39)
--- NOTE | 2019-01-07 19:10 | NUR ---
MS RN NOTES RECEIVED PT IN BED AND AWAKE. PT A/O X0-1. BREATHING EVEN AND UNLABORED WITH NO S/S OF ACUTE DISTRESS OR SOB NOTED. NO S/S OF PAIN NOTED. PT WITH RFA 22G PATENT AND INTACT RUNNING 1/2 NS@125ML/HR. INSOLATION PRECAUTIONS IN PLACE. SAFETY MEASURES IN PLACE WITH BED IN LOWEST LOCKED POSITION WITH SIDE RAILS UP X2. CALL LIGHT WITHIN REACH. WILL CONTINUE TO MONITOR.
--- NOTE | 2019-01-07 19:27 | NUR ---
MS RN CLOSING NOTES Patient resting in bed. A/O x 1. VS stable with no acute distress. Breathing even and unlabored on room air with no respiratory distress. Denies pain. No signs and symptoms of pain noted. 22g PIV on RFA clean, dry, intact and flushing well with IVF 1/2 NS running at 125ml/hr. Isolation precautions in place. Safety precautions in place. Bed locked and set to lowest position with side rails x 2 up. All needs rendered at this time. Daughter at bedside. Will endorse plan of care to oncoming shift.
[2019-01-07 20:42] VITALS: BP 94/67
[2019-01-07] MEDS ORDERED: MUPIROCIN OINT 2% 22 GM TUBE SCH (21:00)
[2019-01-07] MEDS: CEFAZOLIN 1 GM in IV D5W 50 ML IV SCH (21:25)
[2019-01-07] MEDS: DOXYCYCLINE HYCLATE (100 MG) 100 MG TABLET PO SCH (21:27)
[2019-01-07] MEDS: MUPIROCIN OINT 2% 22 GM TUBE SCH (21:27)
[2019-01-07 23:42] LABS: CREATININE, URINE 54.3 MG/DL (30.0-125.0); URINE TOTAL PROTEIN 33.2 mg/dL (0-11.9)
[2019-01-08 00:14] LABS: APPEARANCE,URINE SL CLOUDY (CLEAR); BILIRUBIN,URINE NEGATIVE (NEGATIVE); BLOOD, URINE 3+ Ery/uL (NEGATIVE); COLOR,URINE YELLOW (YELLOW); KETONES,URINE NEGATIVE (NEGATIVE); LEUKOCYTE ESTERASE ,URINE 1+ (NEGATIVE); NITRITE, URINE NEGATIVE (NEGATIVE); PH,URINE 5.5 (5.0-8.0); PROTEIN,URINE NEGATIVE (NEGATIVE); UGLUCOSE NEGATIVE (NEGATIVE); UROBILINOGEN,URINE 0.2 EU/dL (0.2)
[2019-01-08 00:16] LABS: BACTERIA,URINE Few /HPF (None Seen); RBC,URINE 21-50 /HPF (0-2); SQUAMOUS EPITHELIAL CELL,UR Rare /HPF (None Seen); WBC,URINE 51-80 /HPF (0-3)
[2019-01-08 00:19] LABS: EOSINOPHIL,URINE None Seen
[2019-01-08] MEDS: IV 1/2NS 1000 ML 1,000 ML IV PRN ×3 (03:09→22:45)
[2019-01-08] MEDS: CEFAZOLIN 1 GM in IV D5W 50 ML IV SCH ×3 (05:13→21:18)
[2019-01-08] MEDS: BLOOD SUGAR DIAGNOSTIC 1 EACH STRIP IN SCH ×4 (06:36→21:44)
[2019-01-08 06:49] LABS: BASOPHILS % (AUTO) 0.3 % (0.0-2.0); HEMATOCRIT 28 % (39-51); HEMOGLOBIN 9.1 g/dL (13.5-17.5); LYMPHOCYTES # (AUTO) 1.5 /CMM (0.8-4.8); MEAN CORPUSCULAR HGB CONC 33 g/dl (31.0-36.0); MEAN CORPUSCULAR VOLUME 91 fL (80-96); MONOCYTES # (AUTO) 0.4 /CMM (0.1-1.30); MONOCYTES % (AUTO) 6.9 % (2.0-12.0); NEUTROPHILS # (AUTO) 3.8 /CMM (1.8-8.9); NEUTROPHILS % (AUTO) 63.8 % (43.0-81.0); PLATELET COUNT (AUTO) 105 /CMM (150-450); RED BLOOD CELL COUNT(AUTO) 3.05 MIL/uL (4.5-6.0); WHITE BLOOD COUNT (AUTO) 5.9 K/uL (4.3-11.0)
[2019-01-08 07:00] LABS: CALCIUM, SERUM 7.8 mg/dL (8.5-10.1); CARBON DIOXIDE 20 mmol/L (21-32); CHLORIDE 117 mmol/L (98-107); CREATININE 1.3 mg/dL (0.6-1.3); GLUCOSE 73 mg/dL (74-106); MAGNESIUM 2.1 mg/dL (1.8-2.4); PHOSPHORUS 3.2 mg/dL (2.5-4.9); POTASSIUM 3.5 mmol/L (3.5-5.1); SODIUM SERUM 147 mmol/L (136-145); UREA NITROGEN, BLOOD 25 mg/dL (7-18)
--- NOTE | 2019-01-08 07:43 | NUR ---
MS RN NOTES RECEIVED PT IN SLEEPING BUT EASILY AWOKEN VERBALLY OR BY TOUCH. PT A/O X0-1. BREATHING EVEN AND UNLABORED WITH NO S/S OF ACUTE DISTRESS OR SOB NOTED THROUGHOUT SHIFT. NO S/S OF PAIN NOTED. PT WITH RFA 22G PATENT AND INTACT RUNNING 1/2 NS@125ML/HR. PT KEPT CLEAN, DRY, AND COMFORTABLE. INSOLATION PRECAUTIONS IN PLACE. SAFETY MEASURES IN PLACE WITH BED IN LOWEST LOCKED POSITION WITH SIDE RAILS UP X2. CALL LIGHT WITHIN REACH. WILL ENDORSE TO ONCOMING NURSE FOR NEYDA.
--- NOTE | 2019-01-08 07:56 | NUR ---
WOUND CARE CONSULT WOUND CARE RECEIVED CONSULT FOR MULTIPLE WOUNDS. WOUND CARE WILL DEFER CONSULT WELL TREATMENT PLANS TO PLASTIC SURGICAL TEAM WHO ARE CURRENTLY FOLLOWING THIS PATIENT. PATIENT WITH VOLODYMYR AT 13, ALL PRESSURE ULCER PREVENTION MEASURES ARE NOTED TO BE IN PLACE. WILL SEE PRN.
[2019-01-08 08:00] VITALS: BP 113/62
--- NOTE | 2019-01-08 08:00 | NUR ---
RN NOTES RECEIVED PATIENT IN THE BED A/O X1, PATIENT ON O2 ON MASK. PATIENT HAS NO ACUTE RESPIRATORY DISTRESS, V/S STABLE, BS-77MG/DL NO COVERAGE GIVEN, ASSIST PATIENT EATING BY SOLUTIONS ARCHITECT. ADMINISTERED SCHEDULED MEDICATION BY CRUSHED, ASSIST PATIENT TURN AND REPOSTION Q 2 HR. INFUSING NS 1/2 AT 125 ML/HR INTACT. CALL LIGHT WITHIN TO REACH. PATIENT INCONTINENT APPLIED Z-GUARD.BED ALARM ON. CONTINUED MONITORING.
[2019-01-08] MEDS: FAMOTIDINE/PF INJ 20 MG/2 ML VIAL IV SCH ×2 (09:56→21:18)
[2019-01-08] MEDS: DOCUSATE SODIUM 100 MG CAPSULE PO SCH ×2 (09:56→18:01)
[2019-01-08] MEDS: DOXYCYCLINE HYCLATE (100 MG) 100 MG TABLET PO SCH ×2 (09:56→21:17)
[2019-01-08] MEDS: GLUCERNA SHAKE 237 ML CAN PO SCH ×3 (09:58→18:02)
[2019-01-08] MEDS: MUPIROCIN OINT 2% 22 GM TUBE SCH ×2 (09:58→21:17)
--- NOTE | 2019-01-08 12:00 | NUR ---
RN NOTES BS-79MG/DL, PATIENT A/O X1, REFUSED PAIN, NO ACUTE DISTRESS. ASSIST TURN AND REPOSTION Q2 HR. CONTINUED MONITORING.
--- NOTE | 2019-01-08 15:33 | NUR ---
RN NOTES SPEECH THERAPIST WITH THE PATENT AT THIS TIME.
[2019-01-08 16:00] VITALS: BP 119/61
[2019-01-08] MEDS: FERROUS SULFATE (325 MG) 325 MG/TAB TABLET PO SCH (18:01)
[2019-01-08] MEDS: RIVAROXABAN 10 MG TABLET PO SCH (18:02)
[2019-01-08] MEDS: MULTIVITAMIN/LUTEIN/MINERALS 1 TAB PO SCH (18:05)
--- NOTE | 2019-01-08 18:30 | NUR ---
RN NOTES PATIENT STABLE. FAMILY NEXT TO THE BED, BS-75 MG/DL, ADMINISTERED SCHEDULED MEDICATION. PATIENT ISOLATION OF MRSA OF NARES. NEEDS ATTENDED AND ANTICIPATED, ASSIST EATING BY RAG WASHER. REPLACED NEW IV ACCESS ON LEFT FA INTACT CONTINUING INFUSION OF NS AT 125 ML/HR. ASSIST TURN AND REPOSTION Q 2 HR. ENDORSED ONCOMING NURSE FOLLOW PLAN OF CARE.
--- NOTE | 2019-01-08 19:05 | NUR ---
MS RN NOTES RECEIVED PT IN BED AWAKE WITH FAMILY AT BEDSIDE IN STABLE CONDITION. RESPIRATIONS EVEN AND UNLABORED WITH NO S/S OF ACUTE DISTRESS OR SOB NOTED. PT ON ISOLATION FOR MRSA OF NARES AND MAINTAINED AT ALL TIMES. SAFETY MEASURES IN PLACE WITH BED IN LOWEST LOCKED POSITION WITH SIDE RAILS UP X2. CALL LIGHT WITHIN REACH. WILL CONTINUE TO MONITOR.
[2019-01-08 20:15] VITALS: BP 120/50
[2019-01-09] MEDS: CEFAZOLIN 1 GM in IV D5W 50 ML IV SCH ×3 (05:09→22:13)
--- NOTE | 2019-01-09 06:55 | NUR ---
MS RN NOTES PT IN BED ASLEEP BUT EASILY AWOKEN VERBALLY OR BY TOUCH. PT A/O X1. RESPIRATIONS EVEN AND UNLABORED WITH NO S/S OF ACUTE DISTRESS OR SOB NOTED THROUGHOUT SHIFT. TURNED PT Q2H. PT ON ISOLATION FOR MRSA OF NARES AND MAINTAINED AT ALL TIMES. SAFETY MEASURES IN PLACE WITH BED IN LOWEST LOCKED POSITION WITH SIDE RAILS UP X2. PT KEPT CLEAN, DRY, AND COMFORTABLE. CALL LIGHT WITHIN REACH. WILL ENDORSE TO ONCOMING NURSE FOR NEYDA.
--- NOTE | 2019-01-09 07:30 | NUR ---
ms rn received ob bed,awake,alert,oriented x1-2,not in any form of distress, respirations even and unlabored,.no sob noted, lungs are clear,abdomen soft,positive bowel sounds,denies pain at this time, will monitor patient.
[2019-01-09] MEDS: BLOOD SUGAR DIAGNOSTIC 1 EACH STRIP IN SCH ×4 (07:40→22:32)
[2019-01-09 08:00] VITALS: BP 130/83
[2019-01-09] MEDS: GLUCERNA SHAKE 237 ML CAN PO SCH ×3 (08:00→19:07)
--- NOTE | 2019-01-09 08:00 | NUR ---
rn npo for video swallow,all needs attended.
[2019-01-09] MEDS: DOCUSATE SODIUM 100 MG CAPSULE PO SCH ×2 (09:00→19:05)
--- NOTE | 2019-01-09 10:00 | NUR ---
rn video swallow done w/ puree diet recommendation.
[2019-01-09] MEDS ORDERED: BARIUM SULFATE 240 ML ORAL.SUSP PO ONE (10:03)
[2019-01-09] MEDS ORDERED: BARIUM SULFATE 148 GM SUSP.RECON PO ONE (10:03)
[2019-01-09] MEDS: FAMOTIDINE/PF INJ 20 MG/2 ML VIAL IV SCH ×2 (14:08→22:13)
[2019-01-09] MEDS: DOXYCYCLINE HYCLATE (100 MG) 100 MG TABLET PO SCH ×2 (14:08→22:13)
[2019-01-09] MEDS: IV 1/2NS 1000 ML 1,000 ML IV PRN ×2 (14:11→23:16)
[2019-01-09] MEDS: MUPIROCIN OINT 2% 22 GM TUBE SCH ×2 (14:18→22:14)
--- NOTE | 2019-01-09 15:00 | NUR ---
ms brittni puckett called , waiting for the daughter if considering peg placement.
[2019-01-09 16:00] VITALS: BP 113/67
--- NOTE | 2019-01-09 16:59 | NUR ---
ms rn on bed, no distress noted.
[2019-01-09] MEDS: MULTIVITAMIN/LUTEIN/MINERALS 1 TAB PO SCH (17:00)
[2019-01-09] MEDS: FERROUS SULFATE (325 MG) 325 MG/TAB TABLET PO SCH (19:05)
[2019-01-09] MEDS: RIVAROXABAN 10 MG TABLET PO SCH (19:06)
--- NOTE | 2019-01-09 19:20 | NUR ---
RN OPENING NOTE BEDSIDE REPORT RECIEVED FROM FRANCISCO J RN. PATIENT SEEN IN BED IN NO APPARENT DISTRESS. ALERT AWAKE ORIENTED X1 AT THIS . HIGH FALL RISK PRECAUTIONS IN PLACE. BREATHING EVEN AND UNLABORED. IV INFUSING TO LEFT FOREARM 22 GAUGE WITH NO S/S OF COMPLICATIONS. PATIENT HAS ASPIRATION PRECAUTIONS POSTED AT THE BEDSIDE. BED DOWN LOCKED SR X3 CALL LIGHT WITHIN REACH. WILL CONT TO MONITOR.
[2019-01-09 20:02] VITALS: BP 139/79
[2019-01-10] MEDS: CEFAZOLIN 1 GM in IV D5W 50 ML IV SCH ×3 (04:13→20:19)
[2019-01-10 06:24] LABS: BASOPHILS % (AUTO) 0.1 % (0.0-2.0); EOSINOPHILS % (AUTO) 3.7 % (0.0-6.0); HEMATOCRIT 27 % (39-51); HEMOGLOBIN 9.2 g/dL (13.5-17.5); LYMPHOCYTES # (AUTO) 0.6 /CMM (0.8-4.8); LYMPHOCYTES % (AUTO) 16.5 % (20.0-44.0); MEAN CORPUSCULAR HGB CONC 34 g/dl (31.0-36.0); MEAN CORPUSCULAR VOLUME 90 fL (80-96); MONOCYTES # (AUTO) 0.2 /CMM (0.1-1.30); MONOCYTES % (AUTO) 6.7 % (2.0-12.0); NEUTROPHILS # (AUTO) 2.5 /CMM (1.8-8.9); PLATELET COUNT (AUTO) 107 /CMM (150-450); RED BLOOD CELL COUNT(AUTO) 3.04 MIL/uL (4.5-6.0); WHITE BLOOD COUNT (AUTO) 3.4 K/uL (4.3-11.0)
[2019-01-10] MEDS: BLOOD SUGAR DIAGNOSTIC 1 EACH STRIP IN SCH ×4 (06:24→20:48)
[2019-01-10] MEDS: IV 1/2NS 1000 ML 1,000 ML IV PRN (06:32)
[2019-01-10 06:33] LABS: CALCIUM, SERUM 7.5 mg/dL (8.5-10.1); CARBON DIOXIDE 21 mmol/L (21-32); CHLORIDE 110 mmol/L (98-107); CREATININE 0.9 mg/dL (0.6-1.3); GLUCOSE 100 mg/dL (74-106); POTASSIUM 3.3 mmol/L (3.5-5.1); SODIUM SERUM 142 mmol/L (136-145); UREA NITROGEN, BLOOD 19 mg/dL (7-18)
--- NOTE | 2019-01-10 07:00 | NUR ---
RN PM CLOSING NOTES. PATIENT SEEN WITH EYES CLOSED. PATIENT IN NO APPARENT DISTRESS ON ROOM AIR. WILL REPORT TO DAY NURSE FOR CONTINUITY OF CARE. IVF STILL INFUSING TO LEFT FOREARM WITH NO S/S OF COMPLICATIONS.
--- NOTE | 2019-01-10 07:50 | NUR ---
M/S RN NOTES PATIENT RESTING, LYING IN BED. NO RESPIRATORY DISTRESS, NO C/O PAIN AT THIS TIME. SKIN WARM TO TOUCH. IV ACCESS SITES INTACT AND PATENT. BED ON LOWEST LOCKED POSITION, CALL LIGHT WITHIN REACH. WILL CONTINUE TO MONITOR.
[2019-01-10 08:00] VITALS: BP 122/55
[2019-01-10] MEDS: GLUCERNA SHAKE 237 ML CAN PO SCH ×3 (09:41→18:38)
[2019-01-10] MEDS: DOXYCYCLINE HYCLATE (100 MG) 100 MG TABLET PO SCH ×2 (09:50→20:28)
[2019-01-10] MEDS: DOCUSATE SODIUM 100 MG CAPSULE PO SCH ×2 (09:50→18:32)
[2019-01-10] MEDS: FAMOTIDINE/PF INJ 20 MG/2 ML VIAL IV SCH ×2 (09:59→20:28)
[2019-01-10] MEDS ORDERED: POTASSIUM CHLORIDE 20 MEQ TAB.PRT.SR PO SCH (10:00)
[2019-01-10] MEDS: MUPIROCIN OINT 2% 22 GM TUBE SCH ×2 (10:21→20:34)
[2019-01-10 16:00] VITALS: BP 129/106
[2019-01-10] MEDS ORDERED: DOXY100T2 PO (16:26)
[2019-01-10] MEDS ORDERED: MUPI22OI7 (16:26)
[2019-01-10] MEDS ORDERED: CEFA1PIG IV (16:26)
[2019-01-10] MEDS: FERROUS SULFATE (325 MG) 325 MG/TAB TABLET PO SCH (18:31)
[2019-01-10] MEDS: RIVAROXABAN 10 MG TABLET PO SCH (18:33)
[2019-01-10] MEDS: MULTIVITAMIN/LUTEIN/MINERALS 1 TAB PO SCH (18:34)
--- NOTE | 2019-01-10 19:45 | NUR ---
M/S RN NOTES PATIENT BE[facility] DISCHAR[facility] TO [facility], GAVE REPORT TO NICOLETTE NAPIER. PHOTOS TAKEN AND PUT IN THE CHART. PATIENT IN BED WITH NO RESPIRATORY DISTRESS, NO C/O PAIN AT THIS TIME. BED ON LOWEST LOCKED POSITION, CALL LIGHT WITHIN REACH. WILL ENDORSE TO ONCOMING NURSE.
--- NOTE | 2019-01-10 20:00 | NUR ---
MS/RN RECEIVED PATIENT AWAKE, CONFUSED, MILDLY RESTLESS, NO S/S OF PAIN, NO DISTRESS NOTED, PATIENT IS TO BE DISCHARGED TO [facility], WAITING FOR THE AMBULANCE .
--- NOTE | 2019-01-10 21:00 | NUR ---
MS/RN CALLED DAUGHTER, CEDRICK, TO NOTIFY HER ABOUT PATIENT BEING DISCHARGED TO [facility], BUT DAUGHTER REFUSED THE DISCHARGE, DAUGHTER WANTS THE DOCTOR, NOT A NURSE PRACTITIONER, TO SEE HER FATHER FIRST FIRST BEFORE DISCHARGING HIM. PER DAUGHTER, SHE WILL FILE A COMPLAINT IF HER FATHER WII BE DISCHARGED TODAY WITHOUT A DOCTOR SEEING HIM FIRST. CALLED, [facility]. LEFT MESSAGE AT 2124. ISABEL REDDY NP, CALLED BACK AT 2139, INFORMED HER ABOUT THE CONCERN OF THE DAUGHTER. PER ISABEL SHE WILL CALL CYNTHIA GUAJARDO NP.
--- NOTE | 2019-01-10 22:40 | NUR ---
MS/RN PER ISABEL, KEEP THE PATIENT. DAUGHTER WAS NOTIFIED.
--- NOTE | 2019-01-11 02:03 | NUR ---
MS/RN PATIENT IS SLEEPING AT THIS TIME, AROUSABLE, APPEAR COMFORTABLE, NO SIGNS OF DISTRESS NOTED, CALL LIGHT IN REACH. WILL CONTINUE TO MONITOR.
[2019-01-11] MEDS: CEFAZOLIN 1 GM in IV D5W 50 ML IV SCH ×2 (05:14→12:15)
--- NOTE | 2019-01-11 06:01 | NUR ---
MS/RN MORNING CARE WAS DONE, TOTAL LINEN CHANGE RENDERED, SKIN CARE DONE, REPOSITIONED TO COMFORT. PATIENT IS NOW SLEEPING, AROUSABLE, APPEAR COMFORTABLE, NO DISTRESS NOTED, ALL NEEDS ATTENDED AT THIS TIME, WILL CONTINUE TO MONITOR.
[2019-01-11] MEDS: BLOOD SUGAR DIAGNOSTIC 1 EACH STRIP IN SCH ×2 (06:27→11:49)
--- NOTE | 2019-01-11 06:38 | NUR ---
MS/RN ACCU CHECK BLOOD SUGAR 63, NO S/S OF HYPOGLYCEMIA, ORANGE JUICE WITH SUGAR AND APPLE SAUCE WERE GIVEN. WILL CONTINUE TO MONITOR.
[2019-01-11 06:54] LABS: CARBON DIOXIDE 22 mmol/L (21-32); CHLORIDE 113 mmol/L (98-107); GLUCOSE 70 mg/dL (74-106); POTASSIUM 4.5 mmol/L (3.5-5.1); SODIUM SERUM 144 mmol/L (136-145); UREA NITROGEN, BLOOD 16 mg/dL (7-18)
--- NOTE | 2019-01-11 07:33 | NUR ---
MS RN OPENING NOTES RECEIVED PT IN BED AWAKE, A/O X1. TOLERATING RA, WITH NO ACUTE RESPIRATORY DISTRESS. PT DENIES PAIN AND DISCOMFORT AT THIS TIME. IVF 1/2 NS + 40KCL AT 85 ML/HR TO LFA G22, INTACT AND FLUID INFUSING WELL. PT KEPT COMFORTABLE. HOB ELEVATED. PT'S BED IN LOWEST, LOCKED POSITION WITH SR X3. CALL LIGHT KEPT WITHIN REACH. WILL CONTINUE PLAN OF CARE.
[2019-01-11 08:00] VITALS: BP 86/57
[2019-01-11] MEDS: GLUCERNA SHAKE 237 ML CAN PO SCH ×2 (08:01→11:37)
[2019-01-11] MEDS: DOCUSATE SODIUM 100 MG CAPSULE PO SCH (08:27)
[2019-01-11] MEDS: FAMOTIDINE/PF INJ 20 MG/2 ML VIAL IV SCH (08:27)
[2019-01-11] MEDS: DOXYCYCLINE HYCLATE (100 MG) 100 MG TABLET PO SCH (08:27)
[2019-01-11] MEDS: MUPIROCIN OINT 2% 22 GM TUBE SCH (08:28)
[2019-01-11 11:00] VITALS: BP 95/60
--- NOTE | 2019-01-11 11:30 | NUR ---
MS RN NOTES PT WAS SEEN AND EVALUATED BY DR REAVES. CLEARED FOR DISCHARGE BACK TO [facility]. CALLED AND SPOKE TO CRYSTAL GAVE DETAILED REPORT REGARDING IV ANTIBIOTICS AND SPEECH THERAPY. DAUGHTER/CEDRICK MADE AWARE OF PLAN WELL. OKAY FOR DISCHARGE BACK TO [facility]. CN/MANNY MADE AWARE.
[2019-01-11 14:30] VITALS: BP 116/68
--- NOTE | 2019-01-11 15:37 | NUR ---
MS DEV OPS ENGINEER NOTES PT TO DISCHARGE BACK TO [facility]. PT TOLERATING RA, WITH NO SOB AND DISTRESS NOTED. PT ALSO DENIES PAIN AND ANY DISCOMFORT AT THE TIME OF DISCHARGE. VS STABLE. PT HAD BOWEL MOVEMENT TODAY AT NOON TIME. PICTURES OD WOUND TAKEN LAST NIGHT, FILED IN THE CHART. PIV TO LFA, FLUSHED WITH NS, INTACT AND OPERATIONAL. ALL NEEDS AND CARE PROVIDED. KEPT COMFORTABLE, CLEAN AND DRY. TRANSPORTED VIA AMBULANCE IN A GURNEY, WITH 2 WAST[employer] MANAGEMENT SPECIALIST ASSIST. PT LEFT THE UNIT AT 1535. CN AND MD/SK AWARE OF DISCHARGE.
== END 2019-01-11 15:30 | DRG 682 ==
LOC: ER 21:17 → TELE 01-05 00:37 → MED 01-05 09:20
PROVIDERS: ADMIT Registered Nurse; ATTEND Nurse Practitioner Acute Care
DX: N17.0 Acute kidney failure with tubular necrosis (principal); G92 Toxic encephalopathy; E43 Unspecified severe protein-calorie malnutrition; N39.0 Urinary tract infection, site not specified; D68.59 Other primary thrombophilia; E87.0 Hyperosmolality and hypernatremia; Z68.1 Body mass index [BMI] 19.9 or less, adult; E86.0 Dehydration; G30.9 Alzheimer's disease, unspecified; F02.80 Dementia in other diseases classified elsewhere, unspecified severity, without behavioral disturbance, psychotic disturbance, mood disturbance, and anxiety; E83.42 Hypomagnesemia; E87.6 Hypokalemia; E83.39 Other disorders of phosphorus metabolism; I10 Essential (primary) hypertension; E78.5 Hyperlipidemia, unspecified; I48.91 Unspecified atrial fibrillation; Z96.649 Presence of unspecified artificial hip joint; D69.6 Thrombocytopenia, unspecified; D50.9 Iron deficiency anemia, unspecified; E11.9 Type 2 diabetes mellitus without complications; R53.1 Weakness; B96.4 Proteus (mirabilis) (morganii) as the cause of diseases classified elsewhere; L98.8 Other specified disorders of the skin and subcutaneous tissue; L53.9 Erythematous condition, unspecified; L89.890 Pressure ulcer of other site, unstageable; Z22.322 Carrier or suspected carrier of Methicillin resistant Staphylococcus aureus; Z79.01 Long term (current) use of anticoagulants; M84.40XS Pathological fracture, unspecified site, sequela
CPT/HCPCS: 36415; 70450-TC; 71045-TC; 74230-TC; 80048-TC; 80053-TC; 80061-TC; 80076-TC; 81000-TC; 82550-TC; 82570-TC; 82962-TC; 83605-TC; 83690-TC; 83735-TC; 83970; 84100-TC; 84155; 84155-TC; 84165; 84300-TC; 84443-TC; 84484-TC; 85025-TC; 87081-TC; 87086-TC; 87186-TC; 92526; 92611-TC; 97110-TC; 97112-TC; 97530-TC; A4216; G0378; J0690; J0692; J0696; J1815; J1956; J3475; J3480; J3490; J7030; J7042; J7060